=== PATIENT | female | born 1980 | race Two or more races ===

== ENCOUNTER 2016-06-30 21:00 | Outpatient (CLI) | payer OTHER ==
[2016-06-30] MEDS: LACTATED RINGERS 1,000 ML IV ONE ×3 (21:43→23:02)
[2016-06-30] MEDS ORDERED: ONDANSETRON 4 MG/2 ML VIAL IVP STA (22:04)
[2016-06-30] MEDS ORDERED: ACETAMINOPHEN TAB 325 MG TAB PO PRN (22:45)
[2016-06-30 23:12] LABS: Appearance,Urine Clear (Clear); Bilirubin,Urine Negative (Negative); Glucose,Urine (UA) Negative (Negative); Ketones,Urine 1+ (Negative); Leukocyte Esterase,Urine Negative (Negative); Nitrite,Urine Negative (Negative); PH, Urine 6.5 (5.0-8.0); Protein,Urine Negative (Negative); Specific Gravity,Urine 1.005 (1.001-1.035); UA Billing (MACRO vs. MICRO) CHEM; Urobilinogen,Urine <2.0 mg/dL (<2.0)
== END 2016-07-01 00:20 | disposition home or self-care (01) ==
LOC: FBPOP 21:00
PROVIDERS: ATTEND Obstetrics & Gynecology
DX: O99.89 Other specified diseases and conditions complicating pregnancy, childbirth and the puerperium (principal); R51 Headache; Z3A.26 26 weeks gestation of pregnancy
CPT/HCPCS: 99214; 96360; 96361; 96375; 81003; J2405

== ENCOUNTER 2016-07-10 04:37 | Outpatient (CLI) | payer OTHER ==
[2016-07-10 05:04] LABS: Appearance,Urine Clear (Clear); Bilirubin,Urine Negative (Negative); Glucose,Urine (UA) Negative (Negative); Ketones,Urine Negative (Negative); Leukocyte Esterase,Urine Negative (Negative); Nitrite,Urine Negative (Negative); Protein,Urine Negative (Negative); Specific Gravity,Urine 1.006 (1.001-1.035); UA Billing (MACRO vs. MICRO) CHEM; Urobilinogen,Urine <2.0 mg/dL (<2.0)
== END 2016-07-10 05:22 | disposition home or self-care (01) ==
LOC: FBPOP 04:37
PROVIDERS: ATTEND Obstetrics & Gynecology
DX: O99.89 Other specified diseases and conditions complicating pregnancy, childbirth and the puerperium (principal); R10.9 Unspecified abdominal pain; Z3A.27 27 weeks gestation of pregnancy
CPT/HCPCS: 81003; 99213

== ENCOUNTER 2016-08-08 19:10 | Outpatient (CLI) | payer OTHER | END 2016-08-08 19:45 | disposition home or self-care (01) | LOC: FBPOP 19:10 | PROVIDERS: ATTEND Obstetrics & Gynecology | DX: O99.89 Other specified diseases and conditions complicating pregnancy, childbirth and the puerperium (principal); R06.02 Shortness of breath; R05 Cough; Z3A.32 32 weeks gestation of pregnancy | CPT/HCPCS: 59025; 99213 ==

== ENCOUNTER 2016-08-08 19:52 | Observation (INO) | payer OTHER ==
--- NOTE | 2016-08-08 20:31 | ED ---
General Adult HPI - General Chief complaint: Upper Respiratory Infection Stated complaint: SHRUTHI/SENT FROM UPSTAIRS Time Seen by Provider: 08/08/16 19:56 Source: patient, family, RN notes reviewed Mode of arrival: wheelchair Limitations: no limitations - History of Present Illness Initial comments: Chief complaint and history of present illness a 36-year-old female sent down from labor and delivery because of a complaint of cough and shortness of breath. The patient's been feeling sick for the last 3 days. She and her asked a pharmacist which she can take when she started 2 weeks he told them she can take pseudoephedrine. Her last tablet was then 9 this morning. Patient's stating that she has difficulty laying down to sleep at night. Essentially a dry cough occasionally a little yellow and green phlegm. Sometimes she coughs so hard she gags and throws up. - Related Data Home Medications Medication Instructions Recorded Confirmed Pseudoephedrine [Sudafed] 30 mg PO Q4H PRN 08/08/16 08/08/16 Allergies Allergy/AdvReac Type Severity Reaction Status Date / Time iodine Allergy Rash/Hives Verified 08/08/16 20:13 latex Allergy Unknown Verified 08/08/16 20:13 Childhood peanut Allergy Rash/Hives Verified 08/08/16 20:13 Review of Systems ROS Statement: Those systems with pertinent positive or pertinent negative responses have been documented in the HPI. Review of systems. No headache or visual acuity changes. Denies a sore throat. States she feels short of breath even when sitting upright and has to sit upright to sleep. When she lays flat her abdomen does push up against the diaphragms. Recurrent cough. Afebrile at home. She has been using pseudoephedrine to try to control her upper respiratory symptoms. She last took and pseudoephedrine at 9 AM. The patient went to the labor and delivery floor and the baby reportedly checked out okay. the the mother was sent down here for further evaluation. All systems are reviewed. Past medical problems none. Patient states that she is to take Tenex for many years because of a rapid heart rate. She states it was normally in the low 100s. Her boyfriend confirms this. Patient was adopted so she has no family history to report. Surgeries; left inguinal hernia repair. ALLERGIES to iodine and latex and Peanuts. Also the Betadine skin cleanser. Nonsmoker nondrinker ROS Other: All systems not noted in ROS Statement are negative. Past Medical History Past Medical History: No Reported History History of Any Multi-Drug Resistant Organisms: None Reported Past Surgical History: No Surgical Hx Reported Past Psychological History: No Psychological Hx Reported Smoking Status: Never smoker Past Alcohol Use History: None Reported Past Drug Use History: None Reported General Exam - General Exam Comments Initial Comments: General: The patient is awake and alert, appears uncomfortable because of her difficulty breathing. Frequent coughing. No pain. Vital signs show temperature 98.6 pulse 138 history rate 20 pulse ox 97% room air blood pressure 152/77. Eye: Pupils are equal, round and reactive to light, extra-ocular movements are intact ; there is normal conjunctiva bilaterally. No signs of icterus. Ears, nose, mouth and throat: There are moist mucous membranes and no oral lesions. Neck: The neck is supple, there is no tenderness . Cardiovascular: Tachycardic heart rate, 138. No murmur, rub or gallop is appreciated. Blood pressure 152/77 Respiratory: Lungs are clear to auscultation, respirations are non-labored, breath sounds are equal. No wheezes, stridor, rales, or rhonchi. Frequent coughing the lungs are clear. Her story rate 20 pulse ox 97% room air Gastrointestinal: Patient is 32 weeks . Back: There is no tenderness to palpation in the midline. There is no obvious deformity. Musculoskeletal: Normal ROM, no tenderness, There is no pedal edema. There is no calf tenderness or swelling. Sensation intact. Pulses equal bilaterally 2+. Neurological: CN II-XII intact, There are no obvious motor or sensory deficits. Coordination appears grossly intact. Speech is normal. No evidence of a neuro deficits. Skin: Skin is warm and dry and no rashes or lesions are noted. Limitations: no limitations Course Vital Signs 08/08/16 08/08/16 08/09/16 19:56 22:22 00:31 Temperature 98.6 F Pulse Rate 138 H 129 H 137 H Respiratory 20 16 18 Rate Blood Pressure 152/77 115/67 112/60 O2 Sat by Pulse 97 99 98 Oximetry EKG Findings - EKG Comments: EKG Findings:: EKG was done at 2335 showing sinus tachycardia rate 149. No acute ST elevation no ectopy no ischemic changes. MS was 126 QRS 72 QT to [address] Ryan Medical Decision Making - Medical Decision Making Medical decision making repeat vital signs blood pressure 115/67 pulse still elevated at 129. Pulse ox 100 percent room air. The patient's labs show white count 7.8 hemoglobin 12 medical 37 with a d-dimer elevated 1.34. Potassium 4.5 BUN 17 creatinine 0.6 with a GFR greater than 60. Influenza A/B neg per lab report. TSH is 2.0 The patient is not able to have a PE study with CAT scan because of an ALLERGY to iodine. She states she swells when she gets iodine and even when she has Betadine prepped on the skin she has local reaction. A VQ scan was ordered but there isn't any material available this evening, product will be available tomorrow morning so VQ scan can be done at that time. Vital signs, labs and physical exam all discussed with on-call [facility] doctor Peyton. At this time the patient will be admitted to her service, kept on O2, IV hydration and VQ scan in the morning. Patient had EKG done which showed a ventricular rate 149. Patient is admittedly anxious and her heart rate goes from 07/16/1932. Within 5 minutes of having had EKG her heart rate was 125. Patient states she is usually very anxious. Her heart rate was going up and down she talked about her anxiety level. She states she normally takes Tylenol PMs which is a combination of acetaminophen and diphenhydramine in order to make her little sleepy. She is requesting and at this time. She also states she took one half Klonopin several nights ago and a Prilosec for upset stomach. When she was younger she used to take medication as slow her heart rate. She had ADHD and she was on medications for that. When the patient rested watch television heart rate dropped to 125 to 130. - Lab Data Result diagrams: 08/08/16 20:53 08/08/16 20:53 Lab Results 08/08/16 08/08/16 08/08/16 Range/Units 20:53 20:53 20:53 WBC 7.8 (3.8-10.6) k/uL RBC 4.69 (3.80-5.40) m/uL Hgb 12.3 (11.4-16.0) gm/dL Hct 37.8 (34.0-46.0) % MCV 80.6 (80.0-100.0) fL MCH 26.2 (25.0-35.0) pg MCHC 32.4 (31.0-37.0) g/dL RDW 14.5 (11.5-15.5) % Plt Count 246 (150-450) k/uL Neutrophils % 78 % Lymphocytes % 12 % Monocytes % 7 % Eosinophils % 1 % Basophils % 0 % Neutrophils # 6.0 (1.3-7.7) k/uL Lymphocytes # 0.9 L (1.0-4.8) k/uL Monocytes # 0.5 (0-1.0) k/uL Eosinophils # 0.1 (0-0.7) k/uL Basophils # 0.0 (0-0.2) k/uL Hypochromasia Moderate Poikilocytosis Moderate D-Dimer (<0.60) mg/L FEU Sodium 137 (137-145) mmol/L Potassium 4.5 (3.5-5.1) mmol/L Chloride 106 (98-107) mmol/L Carbon Dioxide 20 L (22-30) mmol/L Anion Gap 11 mmol/L BUN 7 (7-17) mg/dL Creatinine 0.60 (0.52-1.04) mg/dL Est GFR (MDRD) Af Amer >60 (>60 ml/min/1.73 sqM) Est GFR (MDRD) Non-Af >60 (>60 ml/min/1.73 sqM) Glucose 77 (74-99) mg/dL Calcium 9.2 (8.4-10.2) mg/dL Total Bilirubin 0.5 (0.2-1.3) mg/dL AST 24 (14-36) U/L ALT 30 (9-52) U/L Alkaline Phosphatase 156 H (38-126) U/L Total Protein 6.6 (6.3-8.2) g/dL Albumin 3.3 L (3.5-5.0) g/dL TSH (0.465-4.680) mIU/L Influenza Type A RNA Not Detected (Not Detectd) Influenza Type B (PCR) Not Detected (Not Detectd) 08/08/16 08/08/16 Range/Units 20:53 20:53 WBC (3.8-10.6) k/uL RBC (3.80-5.40) m/uL Hgb (11.4-16.0) gm/dL Hct (34.0-46.0) % MCV (80.0-100.0) fL MCH (25.0-35.0) pg MCHC (31.0-37.0) g/dL RDW (11.5-15.5) % Plt Count (150-450) k/uL Neutrophils % % Lymphocytes % % Monocytes % % Eosinophils % % Basophils % % Neutrophils # (1.3-7.7) k/uL Lymphocytes # (1.0-4.8) k/uL Monocytes # (0-1.0) k/uL Eosinophils # (0-0.7) k/uL Basophils # (0-0.2) k/uL Hypochromasia Poikilocytosis D-Dimer 1.34 H (<0.60) mg/L FEU Sodium (137-145) mmol/L Potassium (3.5-5.1) mmol/L Chloride (98-107) mmol/L Carbon Dioxide (22-30) mmol/L Anion Gap mmol/L BUN (7-17) mg/dL Creatinine (0.52-1.04) mg/dL Est GFR (MDRD) Af Amer (>60 ml/min/1.73 sqM) Est GFR (MDRD) Non-Af (>60 ml/min/1.73 sqM) Glucose (74-99) mg/dL Calcium (8.4-10.2) mg/dL Total Bilirubin (0.2-1.3) mg/dL AST (14-36) U/L ALT (9-52) U/L Alkaline Phosphatase (38-126) U/L Total Protein (6.3-8.2) g/dL Albumin (3.5-5.0) g/dL TSH 2.010 (0.465-4.680) mIU/L Influenza Type A RNA (Not Detectd) Influenza Type B (PCR) (Not Detectd) Disposition Clinical Impression: Dyspnea, Third trimester Disposition: ADMITTED IP TO [facility] Condition: Fair
[2016-08-08] MEDS: SODIUM CHLORIDE 0.9% 1,000 ML IV SCH (20:58)
--- NOTE | 2016-08-08 21:00 | XR ---
EXAMINATION TYPE: XR chest 2V DATE OF EXAM: 08/08/2016 8:48 PM COMPARISON: NONE HISTORY: Cough and short of breath TECHNIQUE: Frontal and lateral views of the chest are obtained. FINDINGS: Heart and mediastinum are normal. Lungs are clear. Diaphragm is normal. Bony thorax is int act. IMPRESSION: Normal chest
[2016-08-08 21:28] LABS: Basophils % (A) 0 %; CH 26.2; CHCM 32.6; Eosinophils # (A) 0.1 k/uL (0-0.7); Eosinophils % (A) 1 %; HCT 37.8 % (34.0-46.0); HDW 4.05; HGB 12.3 gm/dL (11.4-16.0); Hypochromasia Moderate; Luc # (Auto) 0.21; Luc % (Auto) 3; Lymphocytes # (A) 0.9 k/uL (1.0-4.8); Lymphocytes % (A) 12 %; MCH 26.2 pg (25.0-35.0); MCHC 32.4 g/dL (31.0-37.0); MCV 80.6 fL (80.0-100.0); Mean Platelet Volume 8.1; Monocytes # (A) 0.5 k/uL (0-1.0); Monocytes % (A) 7 %; Neutrophils % (A) 78 %; Poikilocytosis Moderate; RBC 4.69 m/uL (3.80-5.40); RDW 14.5 % (11.5-15.5); WBC 7.8 k/uL (3.8-10.6); WBC (Perox) 8.07
[2016-08-08 22:12] LABS: ALT 30 U/L (9-52); AST 24 U/L (14-36); Alkaline Phosphatase 156 U/L (38-126); Anion Gap 11 mmol/L; Blood Urea Nitrogen 7 mg/dL (7-17); Calcium 9.2 mg/dL (8.4-10.2); Carbon Dioxide 20 mmol/L (22-30); Chloride 106 mmol/L (98-107); Glucose 77 mg/dL (74-99); Non-African American GFR(MDRD) >60 (>60 ml/min/1.73 sqM); Potassium 4.5 mmol/L (3.5-5.1); Sodium 137 mmol/L (137-145); Total Bilirubin 0.5 mg/dL (0.2-1.3); Total Protein 6.6 g/dL (6.3-8.2)
[2016-08-09] MEDS ORDERED: diphenhydrAMINE 25 MG CAP PO STA (00:22)
[2016-08-09] MEDS ORDERED: ACETAMINOPHEN TAB 500 MG TAB PO STA (00:22)
[2016-08-09] MEDS ORDERED: NALOXONE 0.4 MG/ML 1 ML VIAL IV PRN (01:09)
--- NOTE | 2016-08-09 08:00 | NM ---
EXAMINATION TYPE: NM pul perfusion DATE OF EXAM: 08/09/2016 7:51 AM COMPARISON: Chest x-ray from yesterday. HISTORY: Known third trimester with tachycardia, shortness of breath, and positive d-dimer. Following administration of 4.09 mCi Tc 99m MAA. Images obtained post injection in multiple projecti ons of the bilateral lungs. FINDINGS: Only perfusion imaging is performed. No suspicious filling defects are noted on perfusion imaging. Be cause of this ventilation imaging was not performed. IMPRESSION: Low probability for pulmonary embolism.
[2016-08-09] MEDS: SODIUM CHLORIDE 0.9% 1,000 ML IV SCH ×5 (08:29→17:44)
[2016-08-09] MEDS: ACETAMINOPHEN TAB 325 MG TAB PO PRN ×2 (08:34→23:04)
--- NOTE | 2016-08-09 17:43 | ECHOF ---
Referral Reason:lv function MEASUREMENTS -------- HEIGHT: 152.4 cm WEIGHT: 63.5 kg BP: IVSd: 0.9 cm (0.6 - 1.1) LVIDd: 4.3 cm (3.9 - 5.3) LVPWd: 0.9 cm (0.6 - 1.1) LVIDs: 3.4 cm LA Diam: 3.4 cm (2.7 - 3.8) RVIDd: 2.3 cm (< 3.3) Ao Diam: 2.9 cm (2.0 - 3.7) LA Diam: 3.2 cm (2.7 - 3.8) AV Cusp: 1.4 cm (1.5 - 2.6) EPSS: 0.5 cm MV E Adam: 1.75 m/s MV DecT: 158 ms MV A Adam: 1.06 m/s MV E/A Ratio: 1.65 RAP: 5.00 mmHg RVSP: 28.51 mmHg MV EF SLOPE: 169.26 mm/s (70 - 150) MV EXCURSION: 12.23 mm (> 18.000) FINDINGS -------- Undetermined rhythm. This was a technically excellent study. LV size, wall thickness and systolic function are normal, with an EF greater than 55%. The right ventricle is normal in size. The left atrial size is normal. The right atrial size is normal. There is mild aortic valve sclerosis. There is no evidence of aortic regurgitation. Mild mitral regurgitation is present. Mild tricuspid regurgitation present. There is no evidence of pulmonary hypertension. The right ventricular systolic pressure, as measured by Doppler, is 28.51mmHg. There is no pulmonic regurgitation present. The aortic root size is normal. There is no pericardial effusion. CONCLUSIONS -------- 1. LV size, wall thickness and systolic function are normal, with an EF greater than 55%. 2. There is mild aortic valve sclerosis. 3. Mild mitral regurgitation is present. 4. Mild tricuspid regurgitation present. 5. There is no evidence of pulmonary hypertension. 6. The right ventricular systolic pressure, as measured by Doppler, is 28.51mmHg. 7. There is no pulmonic regurgitation present. [employer] PROFESSOR: Sana Millan RDCS
--- NOTE | 2016-08-09 17:51 | CONS ---
DATE OF CONSULTATION: 08/09/2016 CHIEF COMPLAINT: Sinus tachycardia. HISTORY OF PRESENT ILLNESS: The patient is a 36-year-old lady who is 32 weeks , comes in to hospital complaining of shortness of breath and not feeling well. She states that she came down with a runny nose about 3 to 4 days ago and then subsequently felt short of breath and fatigued. Came to the ER, had a d-dimer that was 1.34, went on to have a V/Q scan that is low probability for pulmonary embolism. EKG shows sinus tachycardia with heart rate around 148 beats per minute, movements. The patient still is in sinus tach. Denies any chest pain, paroxysmal nocturnal dyspnea or orthopnea. There is no history of leg edema. The patient had a chest x-ray that was normal. I have been consulted because of the sinus tachycardia. There is no prior cardiac history. She was originally from [facility] and was adopted at age of 9 and has been brought up here in the [place]. An echocardiogram on her showed normal LV function and there is no evidence of valvular heart disease. The patient is not anemic. She has taken Sudafed and then the last dose was yesterday morning. Her TSH is within normal limits. The exact etiology for her sinus tachycardia is unclear, but I do not see any primary cardiac issues causing her sinus tachycardia. She is not anemic. Does not have hyperthyroidism and her LV function is normal and she does not have valvular heart disease. Please look for secondary causes including the recent viral illness and any infection. Her white cell count is normal. The patient does not need any therapy for her sinus tachycardia. She is being hydrated and she is being hydrated at the moment. The BUN and creatinine has been normal limits. Blood sugar is normal at 77. This is her first . Past medical history is negative for hypertension, diabetes or dyslipidemia. Medications include Sudafed. ALLERGIC TO IV DYE, LASIX AND PEANUTS. FAMILY HISTORY: Adopted. SOCIAL HISTORY: Denies smoking or ETOH abuse. REVIEW OF SYSTEMS: HEENT: Unremarkable. CARDIAC: As described above. RESPIRATORY: As described above. GI: Negative. GENITOURINARY: The patient is . PSYCHOSOCIAL: Negative. ENDOCRINE: Negative. Derm: Negative. CONSTITUTIONAL: Significant for fatigue, tiredness. Oncological: Negative. HEMATOLOGICAL: Negative. The rest of the system review is not relevant. The patient's temp is 99.9 and heart rate is 128 beats a minute, blood pressure 130/72, respiratory rate is 18. There is no jugular venous distention. Chest exam reveals good air entry bilaterally. Heart exam reveals first and second heart sounds. No gallop. No murmur. ABDOMEN: Soft. The patient is . Exam of the extremities did not reveal any edema. Peripheral pulses are felt. ASSESSMENT: Inappropriate sinus tachycardia. PLAN: Patient's tachycardia could be related to the Sudafed that she has taken for her flulike symptoms. She is negative for influenza. LV function is normal. She is not in congestive heart failure. She is not anemic. Does not have hypothyroidism. I am not going to start her any medications at this time and she does not require any further cardiac work-up at this time. I reviewed echo results with her. We will watch her on telemetry overnight and I will reassess in the morning.
[2016-08-09] MEDS ORDERED: diphenhydrAMINE 25 MG CAP PO PRN (20:49)
--- NOTE | 2016-08-09 22:16 | P.OBCN ---
History of Present Illness Consult date: 08/09/16 Reason for consult: other (32 weeks intrauterine , dyspnea and tachycardia) Chief complaint: Dyspnea and tachycardia History of present illness: The patient is a 36-year-old 1 para 0 admitted at approximately 32 weeks of with a several-day complaint of increasing head congestion and runny nose. She did try some [id number] Sudafed after consulting with our office and ultimately presented to labor and delivery for evaluation as she felt that she may have pneumonia secondary to difficulty breathing. Her significant other had also recently been sick but has improved. On labor and delivery, she had obstetrical clearance with reactive nonstress test and was transferred to the emergency room for further evaluation of her tachycardia and dyspnea. Thorough evaluation the emergency room included chest x-ray which was negative, laboratory workup which was essentially negative as well. She continued, however, to have significant resting tachycardia though she was asymptomatic. As result a VQ scan was ordered and ultimately carried out early this morning with the it demonstrating low likelihood for pulmonary embolism. She was admitted to a monitored bed and cardiology consultation was sought. She was seen today by Dr. Jenkins who performed an echocardiogram which was entirely negative and normal with normal cardiac function and no evidence of cardiomyopathy. On questioning this evening, she reports that she generally feels better but still has congestion. She coughs when she is completely flat, likely from postnasal drip. She reports normal activity and denies any contractions. She continues to have low back pain and rectal discomfort as previously documented in the office. Obstetrical history 1 para 0 with no particular obstetrical complications to this point aside from as noted in history present illness. Laboratory workup as documented in her record which is not available in the chart at the moment. Gynecologic history is unremarkable with no history of any infections to include STDs. Review of Systems Review of systems is confined to history of present illness. Past Medical History Past Medical History: No Reported History Additional Past Medical History / Comment(s): Pt is 32 weeks gestation. She states she was going for a test for possible gestational diabetes today, past ectopic . 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 She lives with her significant other. She is independent. Smoking Status: Never smoker Past Alcohol Use History: None Reported Additional Past Alcohol Use History / Comment(s): Pt states she is exposed to 2nd hand smoke. Past Drug Use History: None Reported - Past Family History Father History Unknown: Yes Additional Family Medical History / Comment(s): Pt was adopted out of [facility]. She knows her father from a rickshaw accident. Mother History Unknown: Yes Additional Family Medical History / Comment(s): Pt was adopted. Medications and Allergies Home Medications Medication Instructions Recorded Confirmed Type Pseudoephedrine [Sudafed] 30 mg PO Q4H PRN 08/08/16 08/08/16 History Allergies Allergy/AdvReac Type Severity Reaction Status Date / Time iodine Allergy Rash/Hives Verified 08/08/16 20:13 latex Allergy Unknown Verified 08/08/16 20:13 Childhood peanut Allergy Rash/Hives Verified 08/08/16 20:13 Exam - Vital Signs Vital signs: Vital Signs Temp Pulse Pulse Resp BP BP Pulse Ox 08/09/16 20:00 97.7 F 125 H 18 112/73 98 08/09/16 16:00 125 H 16 124/70 98 08/09/16 15:16 99.9 F H 128 H 20 130/72 99 08/09/16 12:00 128 H 08/09/16 08:30 99.9 F H 139 H 20 130/72 99 08/09/16 06:46 133 H 16 127/86 98 08/09/16 03:12 98.9 F 126 H 18 121/60 96 Intake and Output 08/09/16 08/09/16 08/09/16 06:59 14:59 22:59 Intake Total 622 Balance 622 Intake: IV 400 Sodium Chloride 0.9% 1, 400 000 ml @ 50 mls/hr IV . [facility] Rx#:[id number] Oral 222 Other: Voiding Method Toilet In general, this is a well-developed, well-nourished woman in no acute distress. She does sound congested. Her heart has a regular rhythm though she remains tachycardic. Her lungs are clear to auscultation bilaterally in all giles. Her abdomen is gravid, nondistended, has normal active bowel sounds, is soft, nontender, and without any palpable masses aside from uterine fundus. Her extremities are without any cyanosis, clubbing, or significant edema. Pelvic examination is deferred as it is not indicated Results Result Diagrams: 08/08/16 20:53 08/08/16 20:53 Assessment and Plan (1) Dyspnea Status: Acute (2) Tachycardia Status: Acute (3) Third trimester Status: Acute Plan: Workup for her symptoms has been thorough and exhaustive and entirely negative at this point. She does not appear to have any ongoing concerns though she is undergoing nonstress test each shift. These have remained reactive. The patient appears to be improving clinically from her earlier description. Given the findings of cardiology or lack thereof, I suspect she will likely be discharged home in the morning. I have recommended she not take any further Sudafed though she might consider Claritin or perhaps Benadryl. I did warn her that many decongestants can cause extrapyramidal side effects such as tachycardia. We will continue to monitor the baby each shift but otherwise I will follow at a distance.
[2016-08-10] MEDS: ACETAMINOPHEN TAB 325 MG TAB PO PRN (09:01)
--- NOTE | 2016-08-10 10:57 | PN ---
A 36-year-old lady who is 32 weeks is admitted to hospital with symptoms of nasal congestion and was found to be tachycardic for which she was admitted to telemetry unit and Cardiology had been consulted. From cardiac standpoint, her work-up is negative. TSH is normal. Echo shows normal LV function and she is not significantly anemic. This morning, she appears comfortable at rest. Blood pressure was in the 130s to 140s systolic, afebrile, and the heart rate remains elevated, mostly in the 120s to 130s. Chest exam reveals good air entry bilaterally. Heart exam reveals first and second heart sounds. No gallop. Exam of the extremities did not reveal any edema. I do not have any labs from this morning. ASSESSMENT: Inappropriate sinus tachycardia. No further cardiac work-up is needed at this time. She can be discharged home whenever it is safe from her obstetric standpoint. Thank you for allowing us to participate in the care of this pleasant lady.
--- NOTE | 2016-08-10 13:10 | P.DS ---
Providers Date of admission: 08/09/16 01:09 Expected date of discharge: 08/10/16 Attending physician: Dorothy Stearns Consults: 08/09/16 16:01 Consult Physician Stat Consulting Provider: Piotr Jenkins Consult Reason/Comments: tachicardia Do you want consulting provider notified?: Already Contacted Primary care physician: Ken Mathew - Discharge Diagnosis(es) (1) Dyspnea Current Visit: Yes Status: Acute (2) Tachycardia Current Visit: Yes Status: Acute (3) Third trimester Current Visit: Yes Status: Acute Hospital Course: The patient is a 36 year 1 para 0 admitted at approximately 32 weeks of with a several day history of increasing congestion and cough as well as runny nose. She tried [id number] medications to include Sudafed and ultimately presented for complaints that she thought were consistent with pneumonia. She was cleared obstetrically and sent to the emergency room where she was evaluated and found to have significant tachycardia in the range of 120 to 160s. Given the shortness of breath, she underwent chest x-ray as well as ultimately, a VQ scan, both of which were negative. She was admitted to the hospital for further evaluation and cardiac monitoring. She underwent cardiology consultation which time an echocardiogram was performed and found to be normal. White count was normal throughout the entire stay and most of her cough could be attributed to the laying flat with postnasal drip. She did feel somewhat better on the day of discharge. status was reassuring throughout. There was no evidence of any contractions. The entire workup as regards the tachycardia was negative and was thought from cardiology's standpoint to be related either to Sudafed or simply her viral upper respiratory infection. She was cleared from Cardiologic standpoint to be discharged on hospital day #2 and was discharged home to follow-up in my office in approximately 5-7 days. She is instructed to call for any significantly increasing symptoms or any other concerns. She'll continue to monitor movement as previously instructed. I have instructed her to abstain from further use of Sudafed and suggested perhaps she could try Claritin. She understood her instructions and agrees to follow up as noted above. Discharge medications included only vitamins and kjon-hcr-wnboehz decongestants and analgesics as noted above. Procedures: #1. Chest x-ray #2. VQ scan #3. Echocardiogram #4. Cardiology consultation # 5. Remote cardiac monitoring Patient Condition at Discharge: Fair Plan - Discharge Summary Discharge Medication List Pseudoephedrine [Sudafed] 30 mg PO Q4H PRN 08/08/16 [History] Follow up Appointment(s)/Referral(s): Ken Mathew MD [Primary Care Provider] - 1-2 days Danny Blevins MD [STAFF PHYSICIAN] - 1 Week Discharge Disposition: HOME SELF-CARE
[2016-08-10 14:43] VITALS: BP 121/74; PULSE 123; RESP 16; TEMP 96.6
== END 2016-08-10 14:50 | disposition home or self-care (01) ==
LOC: EC 19:52 → 6SEL 08-09 01:09
PROVIDERS: ADMIT Obstetrics & Gynecology; ATTEND Obstetrics & Gynecology
DX: O99.413 Diseases of the circulatory system complicating pregnancy, third trimester (principal); O26.893 Other specified pregnancy related conditions, third trimester; O99.513 Diseases of the respiratory system complicating pregnancy, third trimester; R00.0 Tachycardia, unspecified; R06.00 Dyspnea, unspecified; Z3A.32 32 weeks gestation of pregnancy; J06.9 Acute upper respiratory infection, unspecified; Z91.041 Radiographic dye allergy status; Z88.8 Allergy status to other drugs, medicaments and biological substances
CPT/HCPCS: 36415; 94760; 93005; 93306; 85379; 84439; 80053; 84443; 85025; 87502; 71020; 78580; 99285; 96360; 96361; G0378 ×2; A9540

== ENCOUNTER 2016-08-16 20:35 | Observation (INO) | payer OTHER ==
--- NOTE | 2016-08-16 21:34 | ED ---
General Adult HPI - General Chief complaint: Recheck/Abnormal Lab/Rx Stated complaint: Low Blood Count Time Seen by Provider: 08/16/16 20:50 Source: patient, RN notes reviewed Mode of arrival: wheelchair Limitations: no limitations - History of Present Illness Initial comments: This is a 36-year-old female who is 33 weeks . Patient comes in today stating that her doctor wanted to be evaluated the hospital because her hemoglobin was down to 9.1. Patient states she was admitted to the hospital approximately one week ago for tachycardia they checked her hemoglobin at that time was 12. Patient states since then. The 9.1 and she is more fatigued she feels as though her heart is racing more. Patient states lying backward flat makes her breathing more difficult. Patient denies any chest pain. Patient denies any fever or chills. Patient denies any abdominal pain patient denies any vaginal bleeding or discharge. Patient denies any rectal bleeding or black stools that she knows of. Patient denies dysuria hematuria urinary frequency. Patient denies any lightheadedness dizziness or mcfp episode. - Related Data Home Medications Medication Instructions Recorded Confirmed Acetaminophen Tab [Tylenol Tab] 325 - 650 mg PO Q6H PRN 08/16/16 08/16/16 Acetaminophen/Diphenhydramine 1 - 2 tab PO HS PRN 08/16/16 08/16/16 [Tylenol PM 500-25mg] Loratadine [Claritin] 10 mg PO DAILY 08/16/16 08/16/16 Omeprazole 40 mg PO DAILY 08/16/16 08/16/16 Allergies Allergy/AdvReac Type Severity Reaction Status Date / Time iodine Allergy Rash/Hives Verified 08/16/16 21:05 latex Allergy Unknown Verified 08/16/16 21:05 Childhood peanut Allergy Rash/Hives Verified 08/16/16 21:05 Review of Systems ROS Statement: Those systems with pertinent positive or pertinent negative responses have been documented in the HPI. ROS Other: All systems not noted in ROS Statement are negative. Past Medical History Past Medical History: No Reported History Additional Past Medical History / Comment(s): Pt is 32 weeks gestation. She states she was going for a test for possible gestational diabetes today, past ectopic . 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 She lives with her significant other. She is independent. Smoking Status: Never smoker Past Alcohol Use History: None Reported Additional Past Alcohol Use History / Comment(s): Pt states she is exposed to 2nd hand smoke. Past Drug Use History: None Reported - Past Family History Father History Unknown: Yes Additional Family Medical History / Comment(s): Pt was adopted out of [facility]. She knows her father from a rickshaw accident. Mother History Unknown: Yes Additional Family Medical History / Comment(s): Pt was adopted. General Exam - General Exam Comments Initial Comments: GENERAL: Patient is well-developed and well-nourished. Patient is nontoxic and well- hydrated and is in no acute distress. ENT: Neck is soft and supple. No significant lymphadenopathy is noted. Oropharynx is clear. Moist mucous membranes. Neck has full range of motion without eliciting any pain. EYES: The sclera were anicteric and conjunctiva were pink and moist. Extraocular movements were intact and pupils were equal round and reactive to light. Eyelids were unremarkable. PULMONARY: Unlabored respirations. Good breath sounds bilaterally. No audible rales rhonchi or wheezing was noted. CARDIOVASCULAR: Patient is tachycardic at approximately 130 beats a minute ABDOMEN: Patient is a abdomen consistent with 33 weeks SKIN: Skin is clear with no lesions or rashes and otherwise unremarkable. NEUROLOGIC: Patient is alert and oriented x3. Cranial nerves II through XII are grossly intact. Motor and sensory are also intact. Normal speech, volume and content. Symmetrical smile. MUSCULOSKELETAL: Normal extremities with adequate strength and full range of motion. No lower extremity swelling or edema. No calf tenderness. LYMPHATICS: No significant lymphadenopathy is noted PSYCHIATRIC: Normal psychiatric evaluation. Limitations: no limitations Course Vital Signs 08/16/16 08/16/16 20:47 22:16 Temperature 98 F 97.4 F L Pulse Rate 122 H 93 Respiratory 18 20 Rate Blood Pressure 133/80 113/70 O2 Sat by Pulse 99 99 Oximetry Medical Decision Making - Medical Decision Making EKG shows sinus tachycardia at 120 bpm SC interval is 114 QRS is 86 QT interval 318 QTC is 451 per patient's EKG shows no ST segment elevation or depression or T-wave abdomen is noted up Patient refused a rectal examination. I spoke with Dr. guy to be suboptimal patient we agreed to admit the patient I wrote admitting orders. - Lab Data Result diagrams: 08/16/16 21:45 08/16/16 21:45 Lab Results 08/16/16 08/16/16 08/16/16 Range/Units 21:45 21:45 21:45 WBC 10.1 (3.8-10.6) k/uL RBC 3.75 L (3.80-5.40) m/uL Hgb 9.7 L D (11.4-16.0) gm/dL Hct 29.8 L (34.0-46.0) % MCV 79.6 L (80.0-100.0) fL MCH 26.0 (25.0-35.0) pg MCHC 32.7 (31.0-37.0) g/dL RDW 14.8 (11.5-15.5) % Plt Count 299 (150-450) k/uL Neutrophils % 78 % Lymphocytes % 14 % Monocytes % 5 % Eosinophils % 1 % Basophils % 0 % Neutrophils # 7.8 H (1.3-7.7) k/uL Lymphocytes # 1.4 (1.0-4.8) k/uL Monocytes # 0.5 (0-1.0) k/uL Eosinophils # 0.1 (0-0.7) k/uL Basophils # 0.0 (0-0.2) k/uL Hypochromasia Moderate Poikilocytosis Moderate PT 11.2 (9.0-12.0) sec INR 1.1 (<1.1) APTT 23.9 (22.0-30.0) sec Sodium 135 L (137-145) mmol/L Potassium 4.0 (3.5-5.1) mmol/L Chloride 106 (98-107) mmol/L Carbon Dioxide 18 L (22-30) mmol/L Anion Gap 11 mmol/L BUN 8 (7-17) mg/dL Creatinine 0.57 (0.52-1.04) mg/dL Est GFR (MDRD) Af Amer >60 (>60 ml/min/1.73 sqM) Est GFR (MDRD) Non-Af >60 (>60 ml/min/1.73 sqM) Glucose 121 H (74-99) mg/dL Calcium 8.4 (8.4-10.2) mg/dL Total Bilirubin 0.5 (0.2-1.3) mg/dL AST 22 (14-36) U/L ALT 16 (9-52) U/L Alkaline Phosphatase 155 H (38-126) U/L Total Protein 6.5 (6.3-8.2) g/dL Albumin 3.1 L (3.5-5.0) g/dL Disposition Clinical Impression: Dyspnea, Anemia, Tachycardia, Disposition: ADMITTED IP TO THIS [facility] Time of Disposition: 22:43
[2016-08-16 22:07] LABS: INR 1.1 (<1.1); Partial Thromboplastin Time 23.9 sec (22.0-30.0); Prothrombin Time 11.2 sec (9.0-12.0)
[2016-08-16 22:08] LABS: ALT 16 U/L (9-52); AST 22 U/L (14-36); Alkaline Phosphatase 155 U/L (38-126); Anion Gap 11 mmol/L; Blood Urea Nitrogen 8 mg/dL (7-17); Calcium 8.4 mg/dL (8.4-10.2); Carbon Dioxide 18 mmol/L (22-30); Chloride 106 mmol/L (98-107); Glucose 121 mg/dL (74-99); Non-African American GFR(MDRD) >60 (>60 ml/min/1.73 sqM); Sodium 135 mmol/L (137-145); Total Bilirubin 0.5 mg/dL (0.2-1.3); Total Protein 6.5 g/dL (6.3-8.2)
[2016-08-16 22:19] LABS: Basophils % (A) 0 %; CH 25.7; CHCM 32.4; Eosinophils # (A) 0.1 k/uL (0-0.7); Eosinophils % (A) 1 %; HCT 29.8 % (34.0-46.0); HDW 4.25; Hypochromasia Moderate; Luc # (Auto) 0.26; Luc % (Auto) 3; Lymphocytes # (A) 1.4 k/uL (1.0-4.8); Lymphocytes % (A) 14 %; MCHC 32.7 g/dL (31.0-37.0); MCV 79.6 fL (80.0-100.0); Mean Platelet Volume 8.1; Monocytes # (A) 0.5 k/uL (0-1.0); Monocytes % (A) 5 %; Neutrophils # (A) 7.8 k/uL (1.3-7.7); Neutrophils % (A) 78 %; Poikilocytosis Moderate; RBC 3.75 m/uL (3.80-5.40); RDW 14.8 % (11.5-15.5); WBC 10.1 k/uL (3.8-10.6); WBC (Perox) 10.42
[2016-08-16 22:21] LABS: HGB 9.7 gm/dL (11.4-16.0)
[2016-08-16] MEDS ORDERED: SODIUM CHLORIDE 0.9% 1,000 ML IV ONE (22:43)
--- NOTE | 2016-08-16 23:29 | US ---
EXAMINATION TYPE: US OB >= 14 wk fetus DATE OF EXAM: 08/16/2016 11:18 PM COMPARISON: None CLINICAL HISTORY: Pain Low hemoglobin TECHNIQUE: Transabdominal (TA) GESTATIONAL AGE / DATING Physician Established: (33 weeks/1 days) EDC: 10/03/2016 Dates by LMP: (33 weeks/1 days) EDC: 10/03/2016 Dates by First Scan: No previous at this facility Dates by Current Scan: (34 weeks/6 days) EDC: 09/21/2016 SURVEY IUP: Single PLACENTA: Anterior PREVIA: No Previa ARGELIA: 12.1 cm Normal CERVICAL LENGTH (transabdominal: norm > 3.0cm): 3.3 cm BIOMETRY PRESENTATION: Vertex LIE: Longitudinal BPD: 8.7 cm 35 weeks / 4 days HC: 31.4 cm 35 weeks / 2 days AC: 32.5 cm 36 weeks / 3 days FL: 6.7 cm 34 weeks / 3 days ESTIMATED WEIGHT IN GRAMS: 2747 grams ESTIMATED WEIGHT IN LBS/OZS: 6 lbs. 1 oz. WEIGHT PERCENTAGE BASED ON ESTABLISHED DATES: >97% HC/AC: 0.97 Normal FL/AC: 20.62 Normal HEART RATE: 140 bpm RHYTHM: Normal TECHNOLOGIST IMPRESSION: Viable IUP measuring in the >97% with an CHADWICK of 09/21/2016 on this exam IMPRESSION: The ultrasound gestational age is 34 weeks 6 days. The CHADWICK is 09/21/2016. I see no complicating proces s. I have no old exam to compare. Estimated weight is 2747 g.
[2016-08-16 23:39] VITALS: TEMP 97.7
[2016-08-17 01:28] VITALS: BMI 26.0
[2016-08-17] MEDS ORDERED: ACETAMINOPHEN TAB 325 MG TAB PO PRN (02:08)
[2016-08-17] MEDS ORDERED: diphenhydrAMINE 25 MG CAP PO STA (02:09)
[2016-08-17 08:08] VITALS: BP 100/58; PULSE 113; RESP 14
--- NOTE | 2016-08-17 08:31 | P.HPOB ---
History of Present Illness H&P Date: 08/17/16 Chief Complaint: Shortness of breath at 33 weeks gestation This is a 36-year-old 1 para 0 woman who is approximately 33 weeks who presents to the emergency room with shortness of breath and feeling like her heart is racing. She is well known to this service as she had similar symptoms 1 week ago. She had an extensive evaluation at that time including rule out pulmonary embolism and cardiology consultation. She had a normal echocardiogram and evaluation at that time. She reports since she was discharged home she continues to feel intermittently short of breath especially when she is lying down. She denies chest pain. She was evaluated in the emergency room and was found to have a hemoglobin of 9.7. Because this was decreased from her hemoglobin on recent admission of 12.1 and she was found to be tachycardic, she was admitted for observation. The patient denies any vaginal or rectal bleeding. She denies any abdominal pain or leakage of fluids. She feels good movement. She denies chest pain or shortness of breath upon my initial evaluation and she is requesting to be discharged home as she feels better. ultrasound does not show any evidence of abruption or retroplacental bleeding. There is a normal ARGELIA. The infant isn't greater than the 97th percentile for growth. Nonstress testing has been reassuring for gestational age on the fetus. Review of Systems Constitutional: Reports fatigue, Denies chills, Denies fever Cardiovascular: Reports rapid heart beat, Reports shortness of breath, Denies chest pain, Denies edema, Denies high blood pressure, Denies irregular heart beat, Denies leg edema, Denies lightheadedness, Denies palpitations Respiratory: Reports as per HPI Gastrointestinal: Denies abdominal pain, Denies BRBPR, Denies nausea, Denies vomiting Genitourinary: Denies abnormal vaginal bleeding Neurological: Denies headaches Hematologic/Lymphatic: Denies easy bleeding, Denies easy bruising Past Medical History Past Medical History: No Reported History Additional Past Medical History / Comment(s): Pt is 33 weeks gestation. past ectopic . 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 She lives with her significant other. She is independent. Smoking Status: Never smoker Past Alcohol Use History: None Reported Additional Past Alcohol Use History / Comment(s): Pt states she is exposed to 2nd hand smoke. Past Drug Use History: None Reported - Past Family History Father History Unknown: Yes Additional Family Medical History / Comment(s): Pt was adopted out of [facility]. She knows her father from a rickshaw accident. Mother History Unknown: Yes Additional Family Medical History / Comment(s): Pt was adopted. Medications and Allergies Home Medications Medication Instructions Recorded Confirmed Type Acetaminophen Tab [Tylenol Tab] 325 - 650 mg PO Q6H PRN 08/16/16 08/16/16 History Acetaminophen/Diphenhydramine 1 - 2 tab PO HS PRN 08/16/16 08/16/16 History [Tylenol PM 500-25mg] Loratadine [Claritin] 10 mg PO DAILY 08/16/16 08/16/16 History Omeprazole 40 mg PO DAILY 08/16/16 08/16/16 History Allergies Allergy/AdvReac Type Severity Reaction Status Date / Time iodine Allergy Rash/Hives Verified 08/16/16 21:05 latex Allergy Unknown Verified 08/16/16 21:05 Childhood peanut Allergy Rash/Hives Verified 08/16/16 21:05 Exam - Vital Signs Vital signs: Vital Signs Temp Pulse Pulse Resp BP BP Pulse Ox 08/17/16 07:20 97.7 F 113 H 14 100/58 97 08/17/16 04:00 104 H 16 109/73 99 08/16/16 23:36 97.7 F 117 H 20 116/85 99 Intake and Output 08/16/16 08/17/16 08/17/16 22:59 06:59 14:59 Other: # Voids 1 Weight 61.9 kg This is a pleasant, visibly gravid woman in no apparent distress. HEENT exam is unremarkable with no sinus pain. The lungs are clear to auscultation bilaterally without wheezing or consolidation. The heart is of regular rhythm however is tachycardic. No detectable murmur. The abdomen is gravid, soft and nontender. She has no lower extremity edema or tenderness. Nonstress testing is reassuring at this time. Results Result Diagrams: 08/16/16 21:45 08/16/16 21:45 US - abdomen: report reviewed Assessment and Plan (1) Anemia Narrative/Plan: No acute bleeding episode. Likely iron deficiency anemia of . Will start her on oral iron supplementation twice a day in addition to her vitamin. Status: Acute (2) Narrative/Plan: Reassuring status by ultrasound and nonstress testing. Estimated weight greater than the 97th percentile. No evidence of labor. Status: Acute (3) Tachycardia Narrative/Plan: Sinus tachycardia. She has completed a thorough workup recently including cardiology consultation , evaluation for pulmonary embolism which was negative and echocardiogram which was normal. Currently her heart rate is approximately 120 bpm and she is asymptomatic. Telemetry shows no arrhythmias. She will therefore be discharged home on having completed observation. 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 Status: Acute
== END 2016-08-17 11:06 | disposition home or self-care (01) ==
LOC: EC 20:35 → 6SEL 22:43 → INTOOBSV 22:43
PROVIDERS: ADMIT Obstetrics & Gynecology; ATTEND Obstetrics & Gynecology
DX: O99.013 Anemia complicating pregnancy, third trimester (principal); O99.353 Diseases of the nervous system complicating pregnancy, third trimester; D50.9 Iron deficiency anemia, unspecified; O99.343 Other mental disorders complicating pregnancy, third trimester; F41.9 Anxiety disorder, unspecified; R53.83 Other fatigue; R06.02 Shortness of breath; R00.0 Tachycardia, unspecified; F90.9 Attention-deficit hyperactivity disorder, unspecified type; Z79.899 Other long term (current) drug therapy; Z86.19 Personal history of other infectious and parasitic diseases; Z87.42 Personal history of other diseases of the female genital tract; Z87.19 Personal history of other diseases of the digestive system; Z91.041 Radiographic dye allergy status; Z91.040 Latex allergy status; Z91.010 Allergy to peanuts; Z77.22 Contact with and (suspected) exposure to environmental tobacco smoke (acute) (chronic); Z90.79 Acquired absence of other genital organ(s); Z3A.33 33 weeks gestation of pregnancy
CPT/HCPCS: 99285; 36415; 93005; 80053; 85025; 85610; 85730; 76805; G0378 ×2

== ENCOUNTER 2016-09-17 13:26 | Inpatient (IN) | payer OTHER ==
[2016-09-17] MEDS ORDERED: ceFAZolin 2 GM in SODIUM CHLORIDE 0.9% 100 ML IVPB ONE (13:50)
[2016-09-17] MEDS ORDERED: CITRIC ACID-SODIUM CITRATE 15 ML CUP PO ONE (13:50)
[2016-09-17 14:17] LABS: Anisocytosis Slight; Aty Lym Flag Moderate; CH 25.7; HCT 31.7 % (34.0-46.0); HDW 3.75; HGB 10.2 gm/dL (11.4-16.0); Hypochromasia Moderate; MCH 25.9 pg (25.0-35.0); MCHC 32.1 g/dL (31.0-37.0); MCV 80.8 fL (80.0-100.0); Mean Platelet Volume 9.6; Microcytosis Slight; Poikilocytosis Slight; RBC 3.92 m/uL (3.80-5.40); RDW 19.1 % (11.5-15.5); WBC (Perox) 8.77
[2016-09-17 14:28] VITALS: BMI 27.0
--- NOTE | 2016-09-17 14:31 | P.HPOB ---
History of Present Illness H&P Date: 09/17/16 Chief Complaint: Spontaneous rupture of membranes This is a 36-year-old 2 para 0010 woman with an estimated due date of based on LMP who presents at 37-3/7 weeks gestation with spontaneous rupture of membranes. She reports leakage of clear fluid starting approximately 11:30 AM. She denies contractions, abdominal pain or vaginal bleeding. She was a planned primary low transverse section secondary to history of anal and perineal surgeries as a child. She has chronic pain in this area and the decision was made to avoid vaginal delivery. She has also been evaluated throughout the for idiopathic tachycardia. Cardiology workup has been entirely negative. She has a history of anxiety and depression. Laboratory data: Group B strep negative, blood type B positive, antibody screen negative, rubella immune, VDRL nonreactive, hepatitis B surface antigen negative , HIV negative. Review of Systems All systems: negative Past Medical History Past Medical History: No Reported History Additional Past Medical History / Comment(s): Tachicardia during , past ectopic . 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 She lives with her significant other. She is independent. Smoking Status: Never smoker Past Alcohol Use History: None Reported Additional Past Alcohol Use History / Comment(s): Pt states she is exposed to 2nd hand smoke. Past Drug Use History: None Reported - Past Family History Father History Unknown: Yes Additional Family Medical History / Comment(s): Pt was adopted out of [facility]. She knows her father from a rickshaw accident. Mother History Unknown: Yes Additional Family Medical History / Comment(s): Pt was adopted. Medications and Allergies Home Medications Medication Instructions Recorded Confirmed Type Albuterol Sulfate [Ventolin HFA] 2 puff INHALATION DIRECTED PRN 09/17/16 History Allergies Allergy/AdvReac Type Severity Reaction Status Date / Time iodine Allergy Rash/Hives Verified 09/17/16 13:30 latex Allergy Anaphylaxis Verified 09/17/16 13:30 peanut Allergy Rash/Hives Verified 09/17/16 13:30 Exam - Vital Signs Vital signs: Vital Signs Temp Pulse Resp BP 09/17/16 13:32 97.9 F 99 16 137/86 Intake and Output 09/16/16 09/17/16 09/17/16 22:59 06:59 14:59 Other: Weight 64.864 kg Patient Weight 09/18/16 06:59 Weight 64.864 kg This is a pleasant visibly gravid female in no apparent distress. Targeted physical exam is performed. Abdomen is gravid, soft and nontender. There is no flank pain. On pelvic examination rupture of membranes is confirmed. The cervix is 1 cm dilated and 90% effaced. There is scarring in the perineal area consistent with her surgical history. The extremities are free of any significant edema or asymmetry. heart tones are reassuring by external monitoring and she is chana irregularly. Results Result Diagrams: 09/17/16 14:10 Abnormal Lab Results - Last 24 Hours (Table) 09/17/16 Range/Units 14:10 Hgb 10.2 L (11.4-16.0) gm/dL Hct 31.7 L (34.0-46.0) % RDW 19.1 H (11.5-15.5) % Assessment and Plan (1) 37 or more weeks gestation of Status: Acute (2) Spontaneous rupture of membranes Status: Acute (3) History of rectal surgery Status: Acute Plan: 36-year-old 2 para 0010 woman who presents at 37+ weeks gestation with spontaneous rupture of membranes not in active labor. She is planned for a primary low transverse section secondary to a history of extensive rectal and perineal surgery as a child. The risks, benefits and alternatives of this mode of delivery have been reviewed with her in the office setting. She declines any further questions today and consent is obtained for primary low transverse section. status is currently reassuring by external monitoring. She is group B strep negative and Rh+.
[2016-09-17 14:42] LABS: Add Differential Manual Differential
[2016-09-17 14:44] LABS: Manual Review Performed; Nucleated Red Blood Cells 0 /100 WBC (0-0); Total Cells Counted 100
[2016-09-17] MEDS ORDERED: LACTATED RINGERS 1,000 ML BAG IV ONE (15:16)
[2016-09-17] MEDS ORDERED: ONDANSETRON 4 MG/2 ML VIAL ONE (15:16)
[2016-09-17] MEDS ORDERED: OXYTOCIN 10 UNIT/ML 1 ML VIAL IM ONE (15:16)
[2016-09-17] MEDS ORDERED: fentaNYL (PF) 50 MCG/ML 2 ML AMP ONE (15:16)
[2016-09-17] MEDS ORDERED: MORPHINE SULFATE (PF) 0.3 MG/0.3 ML SYR ONE (15:16)
[2016-09-17] MEDS ORDERED: KETOROLAC 30 MG/ML 1 ML VIAL ONE (15:16)
[2016-09-17] MEDS ORDERED: PHENYLEPHRINE-0.9% NACL SYG 1 MG/10 ML SYRINGE ONE (15:16)
[2016-09-17] MEDS ORDERED: NALBUPHINE 10 MG/ML AMPUL ONE (15:16)
[2016-09-17] MEDS ORDERED: diphenhydrAMINE 50 MG/ML 1 ML VIAL IVP PRN (16:12)
[2016-09-17] MEDS ORDERED: diphenhydrAMINE 25 MG CAP PO PRN (16:12)
[2016-09-17] MEDS ORDERED: NALOXONE 0.4 MG/ML 1 ML VIAL IV PRN (16:12)
[2016-09-17] MEDS ORDERED: ONDANSETRON 4 MG/2 ML VIAL IVP PRN (16:12)
[2016-09-17] MEDS ORDERED: diphenhydrAMINE 50 MG CAP PO PRN (16:12)
[2016-09-17] MEDS ORDERED: METOCLOPRAMIDE 5 MG/ML 2 ML VIAL IVP PRN (16:12)
[2016-09-17] MEDS ORDERED: ZOLPIDEM 5 MG TAB PO PRN (16:12)
[2016-09-17] MEDS ORDERED: Acetaminophen-Codeine 300-30mg TAB PO PRN (16:12)
[2016-09-17] MEDS ORDERED: ACETAMINOPHEN TAB 325 MG TAB PO PRN (16:12)
--- NOTE | 2016-09-17 16:12 | P.OP ---
Date of Procedure: 09/17/16 Preoperative Diagnosis: Intrauterine at 37-5/7 weeks gestation Spontaneous rupture of membranes History of rectal surgeries Planned elective primary low transverse section Postoperative Diagnosis: Same Procedure(s) Performed: Primary low transverse section Anesthesia: spinal Surgeon: Rocio Minor Finishing Supervisor #1: Ed Duarte Estimated Blood Loss (ml): 400 IV fluids (ml): 1,400 Urine output (ml): 300 Pathology: other (Placenta) Condition: stable Disposition: floor Operative Findings: Female in the vertex presentation with Apgars of 8 at 1 minute and 9 at 5 minutes weighing 7 lbs. 7 oz., 3360 g. Intact, three-vessel cord placenta. Description of Procedure: After the patient was met preoperatively and all questions were answered, she was taken to the operating room where spinal anesthetic was administered without incident. She was then positioned, prepped and draped in the dorsal supine position with a leftward tilt. Lowry catheter was placed. After anesthetic was confirmed adequate, a low transverse skin incision was made following the pre-existing scar. This was carried down to the underlying fascia both sharply and with the electrocautery. The fascia was then incised in the midline and extended bilaterally with the Pedro scissors. The superior aspect of the fascial incision was elevated and the underlying rectus muscles dissected off sharply and with the electrocautery. The inferior aspect of the fascial incision was also elevated and the underlying rectus muscles dissected off sharply. The muscles were adherent in the midline. These were bluntly and the peritoneum was tented up with hemostats. The peritoneum was entered sharply with the Metzenbaum scissors. The peritoneal incision was extended inferiorly and superiorly with good visualization of the bladder. The bladder blade was placed. The vesicouterine peritoneum was identified, tented up and entered sharply, the bladder flap was created both sharply and digitally. A low transverse uterine incision was then made sharply and carried down to the underlying amniotic membranes. Membranes were ruptured and clear fluid was noted. The uterine incision was extended bilaterally bluntly. The infant's head was delivered from the incision without difficulty. The nose and mouth were bulb suctioned. The rest of the infant was delivered onto the field without difficulty. And cut and the was taken to the warmer. An intact , three-vessel cord placenta was then manually removed and the uterus was exteriorized. The uterus was cleared of all clot and debris. The uterine incision was delineated with Taylor clamps. The uterine incision was then closed in a running locked fashion with 0 Vicryl suture. A second imbricating layer of the same was placed. Additional [id number] sutures were placed where necessary along the incision for hemostasis. The uterus was then returned to the abdomen and the gutters were cleared of all clot and debris. The uterine incision was reinspected and Bovie electrocautery was utilized were necessary for hemostasis. The fascial edges, peritoneal edges and rectus muscles were inspected and Bovie electrocautery utilized were necessary for hemostasis. The fascia was then closed in a running fashion with 0 Vicryl suture. There was additional bleeding noted after closure of the fascia that was felt to be excessive. The fascia was then reopened and the uterine incision was reinspected. No active bleeding along the entire length of the uterus was noted. The rectus muscles were reinspected and no active bleeding was noted. The fascia was then reclosed. The subcuticular tissue was copiously suction irrigated and Bovie electrocautery utilized were necessary for hemostasis. 3-0 Vicryl suture was utilized to reapproximate the subcuticular tissue. The skin was then closed in a subcutaneous fashion with 4- 0 Vicryl suture. All counts reported to me as correct by the operating room staff at the end of the procedure. The patient received antibiotics preoperatively and Pitocin following cord clamp. Mother and infant were both transported from the room in stable condition.
[2016-09-17] MEDS ORDERED: OXYTOCIN 30 UNITS/500 ML NS 30 UNIT in SALINE 1 500ML.BAG IV SCH (16:15)
[2016-09-17] MEDS: LACTATED RINGERS 1,000 ML IV SCH (16:53)
[2016-09-17] MEDS ORDERED: SILVER NITRATE APPLICATOR 1 EACH STICK..EA. TOPICAL ONE ×2 (20:10→20:21)
--- NOTE | 2016-09-17 20:16 | P.PN ---
Progress Note - Text I was called to evaluate excessive bleeding from the incision. Evaluation at the bedside shows an active small arterial bleed at the posterior skin admission on the right lateral aspect of the incision. Silver nitrate is applied and pressure is held to the area. Complete hemostasis is noted. Pressure dressing is applied after Steri-Strips were replaced.
[2016-09-17] MEDS: diphenhydrAMINE 50 MG/ML 1 ML VIAL IVP PRN ×2 (20:19→20:45)
[2016-09-17 20:45] LABS: Anisocytosis Slight; Basophils % (A) 0 %; CH 25.4; CHCM 31.6; Eosinophils % (A) 0 %; HCT 28.5 % (34.0-46.0); HDW 3.67; Hypochromasia Moderate; Luc # (Auto) 0.33; Luc % (Auto) 3; Lymphocytes # (A) 1.3 k/uL (1.0-4.8); Lymphocytes % (A) 12 %; MCH 25.7 pg (25.0-35.0); MCHC 31.7 g/dL (31.0-37.0); MCV 81.1 fL (80.0-100.0); Mean Platelet Volume 9.9; Microcytosis Slight; Monocytes # (A) 0.4 k/uL (0-1.0); Monocytes % (A) 3 %; Neutrophils % (A) 81 %; Poikilocytosis Slight; RBC 3.51 m/uL (3.80-5.40); RDW 18.9 % (11.5-15.5); WBC 11.1 k/uL (3.8-10.6); WBC (Perox) 11.51
[2016-09-17] MEDS: SENNOSIDES-DOCUSATE SODIUM 1 EACH TAB PO SCH (22:10)
[2016-09-17] MEDS: KETOROLAC 30 MG/ML 1 ML VIAL IVP PRN (23:11)
[2016-09-18] MEDS: LACTATED RINGERS 1,000 ML IV SCH (04:52)
[2016-09-18 10:10] LABS: Anisocytosis Slight; Basophils % (A) 1 %; CH 25.5; CHCM 31.5; Eosinophils % (A) 0 %; HCT 25.3 % (34.0-46.0); HDW 3.63; HGB 7.8 gm/dL (11.4-16.0); Hypochromasia Moderate; Luc % (Auto) 4; Lymphocytes # (A) 0.9 k/uL (1.0-4.8); Lymphocytes % (A) 10 %; MCH 25.3 pg (25.0-35.0); MCHC 30.9 g/dL (31.0-37.0); MCV 81.7 fL (80.0-100.0); Mean Platelet Volume 8.4; Microcytosis Slight; Monocytes # (A) 0.3 k/uL (0-1.0); Monocytes % (A) 4 %; Neutrophils # (A) 7.1 k/uL (1.3-7.7); Neutrophils % (A) 82 %; Poikilocytosis Slight; RBC 3.09 m/uL (3.80-5.40); RDW 19.3 % (11.5-15.5); WBC 8.7 k/uL (3.8-10.6); WBC (Perox) 9.01
--- NOTE | 2016-09-18 11:38 | P.PNOBGPC ---
Subjective - Subjective Principal diagnosis: Postop day 1 Interval history: She reports feeling very well. On no bleeding from incision throughout the night according to the nursing staff. Patient reports: Reports appetite normal, Reports voiding normally, Reports pain well controlled, Reports ambulating normally, Denies nauseated : doing well Objective - Vital Signs Latest vital signs: Vital Signs Temp Pulse Resp BP Pulse Ox 09/18/16 08:00 98.2 F 103 H 16 124/78 09/18/16 06:00 18 09/18/16 04:00 99.0 F 100 18 120/87 100 09/17/16 23:18 99.6 F 102 H 15 128/84 09/17/16 20:00 98.4 F 83 14 133/74 09/17/16 18:15 92 14 128/79 09/17/16 17:45 93 14 131/89 09/17/16 17:09 80 14 117/75 09/17/16 17:00 97 F L 83 14 115/76 100 09/17/16 16:45 77 16 120/75 100 09/17/16 16:28 88 14 130/80 09/17/16 16:15 96.8 F L 95 16 127/79 09/17/16 14:07 97.3 F L 90 16 134/90 09/17/16 13:50 97.7 F 103 H 16 134/90 09/17/16 13:32 97.9 F 99 16 137/86 Intake and Output 09/17/16 09/18/16 09/18/16 22:59 06:59 14:59 Output Total 750 225 Balance -750 -225 Output: Urine 750 225 Uretheral (Lowry) 75 Other: Voiding Method Indwelling Catheter # Voids 1 - Exam Extremities: Present: normal Abdomen: Present: normal appearance, soft, tenderness. Absent: distention Incision: Present: normal, dry, intact Uterus: Present: normal, firm - Labs Labs: Abnormal Lab Results - Last 24 Hours (Table) 09/17/16 09/17/16 09/18/16 Range/Units 14:10 20:12 09:31 WBC 11.1 H (3.8-10.6) k/uL RBC 3.51 L 3.09 L (3.80-5.40) m/uL Hgb 10.2 L 9.0 L 7.8 L (11.4-16.0) gm/dL Hct 31.7 L 28.5 L 25.3 L (34.0-46.0) % MCHC 30.9 L (31.0-37.0) g/dL RDW 19.1 H 18.9 H 19.3 H (11.5-15.5) % Neutrophils # 9.0 H (1.3-7.7) k/uL Lymphocytes # 0.9 L (1.0-4.8) k/uL Assessment and Plan (1) 37 or more weeks gestation of Current Visit: Yes Status: Acute Code(s): [id number] - SNOMED Code(s): 47081640 (2) Spontaneous rupture of membranes Current Visit: Yes Status: Acute Code(s): NKK8204 - SNOMED Code(s): 615673700 (3) History of rectal surgery Current Visit: Yes Status: Acute Code(s): Z98.890 - OTHER SPECIFIED POSTPROCEDURAL STATES SNOMED Code(s): 830593517 (4) Anemia Narrative/Plan: Chronic anemia with superimposed postoperative anemia. She is asymptomatic and is otherwise hemodynamically stable. Current Visit: No Status: Acute Code(s): D64.9 - ANEMIA, UNSPECIFIED SNOMED Code(s): 892654411 (5) S/P section Narrative/Plan: Postop day 1 status post primary low transverse section for spontaneous rupture of membranes and history of rectal surgery, planned primary . She is recovering well. She did have some bleeding from the superficial aspect of the incision last night. This is completely resolved. See prior progress note. She has no current active bleeding in the incision appears normal and well healing. Current Visit: Yes Status: Acute Code(s): Z98.891 - HISTORY OF UTERINE SCAR FROM PREVIOUS SURGERY SNOMED Code(s): 490319631
[2016-09-18] MEDS: KETOROLAC 30 MG/ML 1 ML VIAL IVP PRN (11:51)
[2016-09-18] MEDS: SENNOSIDES-DOCUSATE SODIUM 1 EACH TAB PO SCH ×2 (11:52→20:43)
[2016-09-18] MEDS: Acetaminophen-Codeine 300-30mg TAB PO PRN ×2 (16:24→20:44)
[2016-09-19] MEDS: IBUPROFEN 600 MG TAB PO PRN ×3 (00:59→23:48)
--- NOTE | 2016-09-19 07:55 | P.PN ---
Progress Note - Text Date:09/18 Time:2129 Patient is status post . Patient seen this morning with VAS score of 2. c/o of pruritus, no c/o nausea/vomiting, comfortable and doing well.
[2016-09-19] MEDS: SENNOSIDES-DOCUSATE SODIUM 1 EACH TAB PO SCH ×2 (08:32→21:40)
[2016-09-19] MEDS: Acetaminophen-Codeine 300-30mg TAB PO PRN ×2 (08:32→19:38)
--- NOTE | 2016-09-19 09:22 | P.PNOBGPC ---
Subjective - Subjective Patient reports: Reports appetite normal, Reports voiding normally, Reports pain well controlled, Reports ambulating normally : doing well Objective - Vital Signs Latest vital signs: Vital Signs Temp Pulse Resp BP Pulse Ox 09/19/16 08:00 97.8 F 98 20 135/93 99 09/19/16 00:00 98.3 F 100 16 120/70 09/18/16 20:00 98.5 F 100 16 122/74 09/18/16 16:00 98.1 F 103 H 16 117/72 09/18/16 12:00 97.8 F 103 H 16 134/82 Intake and Output 09/18/16 09/19/16 09/19/16 22:59 06:59 14:59 Other: Voiding Method Indwelling Catheter - Exam Lungs: bilateral: normal Chest: Normal S1, Normal S2 Extremities: Present: normal Abdomen: Present: normal appearance, soft. Absent: distention, tenderness Incision: Present: normal, dry, intact Uterus: Present: normal, firm (The uterine fundus as tonic and nontender just below the umbilicus.) - Labs Labs: Abnormal Lab Results - Last 24 Hours (Table) 09/18/16 Range/Units 09:31 RBC 3.09 L (3.80-5.40) m/uL Hgb 7.8 L (11.4-16.0) gm/dL Hct 25.3 L (34.0-46.0) % MCHC 30.9 L (31.0-37.0) g/dL RDW 19.3 H (11.5-15.5) % Lymphocytes # 0.9 L (1.0-4.8) k/uL Assessment and Plan (1) S/P section Narrative/Plan: Continue routine postoperative care. Anticipate discharge home tomorrow pending no further complications or concerns. Current Visit: Yes Status: Acute Code(s): Z98.891 - HISTORY OF UTERINE SCAR FROM PREVIOUS SURGERY SNOMED Code(s): 847002338
[2016-09-19] MEDS: ESCITALOPRAM 20 MG TAB PO SCH (21:40)
[2016-09-20 04:10] VITALS: TEMP 97.8
[2016-09-20 08:04] VITALS: BP 132/87; PULSE 96; RESP 14
[2016-09-20] MEDS: IBUPROFEN 600 MG TAB PO PRN (08:17)
[2016-09-20] MEDS: ESCITALOPRAM 20 MG TAB PO SCH (08:18)
[2016-09-20] MEDS: SENNOSIDES-DOCUSATE SODIUM 1 EACH TAB PO SCH (08:19)
--- NOTE | 2016-09-20 08:49 | P.DS ---
Providers Date of admission: 09/17/16 13:54 Expected date of discharge: 09/20/16 Attending physician: Danny Blevins - Discharge Diagnosis(es) (1) S/P section Current Visit: Yes Status: Acute Hospital Course: The patient is a 36 year 2 para 0010 admitted at 37-3/7 weeks by good dating parameters with documented spontaneous rupture of membranes of clear fluid. Her has been complicated by fairly significant anxiety and she has a history from childhood of multiple rectal perineal and low back surgeries and requested primary section so as not to cause any further damage to this area. She additionally had a history of idiopathic tachycardia which was worked up by cardiology and was completely negative. On labor and delivery, she was taken the operating room where she was delivered by primary low-transverse section of a viable 7 lbs. 7 oz. baby girl with Apgars of 8 at 1 minute and 9 at 5 minutes. Her and postoperative course was unremarkable with vital signs remained stable and her temperature was afebrile throughout. She was deemed stable for discharge by postoperative day # 3 and was discharged home to follow-up in the office in 2 weeks for an incision check and 6 weeks' time routinely. Discharge instructions included calling for any significantly increased bleeding or foul-smelling lochia, significantly increased fever abdominal pain, perineal complaints, breast complaints, incisional complaints, or anything else that concerned her. She is additionally instructed to have nothing in the vagina for at least 6 weeks time to include intercourse. She was instructed to do no heavy lifting over the same period of time. She was lastly instructed to do no driving until off of all pain medications or 2 weeks' time, whichever came first. She understood her instructions and agrees to follow up as noted above. Discharge medications included a prescription for Tylenol 3, 1-2 by mouth every 6 hours when necessary pain, #30 dispensed with no refills. She is additionally to continue vitamins as she has opted to breast-feed. She will otherwise use over- the-counter analgesic pain medications as well and as needed. She will continue her Lexapro 20 mg daily at home. Maternal blood type is B+ and rubella status is immune. Discharge hemoglobin and hematocrit were 7.8 and 25.3 respectively. She therefore was to use iron sulfate daily for the next 1- 2 months to rebuild her hemoglobin. Procedures: #1. Primary low-transverse section Patient Condition at Discharge: Good Plan - Discharge Summary New Discharge Prescriptions: Acetaminophen-Codeine 300-30mg [Tylenol #3] 2 tab PO Q6H PRN #30 tablet PRN Reason: Pain Discharge Medication List Albuterol Sulfate [Ventolin HFA] 2 puff INHALATION DIRECTED PRN 09/17/16 [ History] Acetaminophen-Codeine 300-30mg [Tylenol #3] 2 tab PO Q6H PRN #30 tablet [Rx] Follow up Appointment(s)/Referral(s): Danny Blevins MD [STAFF PHYSICIAN] - 2 Weeks Discharge Disposition: HOME SELF-CARE
== END 2016-09-20 11:59 | disposition home or self-care (01) | DRG 765 ==
LOC: FBPOP 13:26 → 4FBP 13:54
PROVIDERS: ADMIT Obstetrics & Gynecology; ATTEND Obstetrics & Gynecology
PROC: 10D00Z1 Extraction of Products of Conception, Low, Open Approach (ICD-10-PCS; principal; 2016-09-17 15:00)
DX: O99.344 Other mental disorders complicating childbirth (principal); O99.42 Diseases of the circulatory system complicating childbirth; R00.0 Tachycardia, unspecified; O99.02 Anemia complicating childbirth; D64.9 Anemia, unspecified; Z37.0 Single live birth; Z3A.37 37 weeks gestation of pregnancy; F41.9 Anxiety disorder, unspecified; F90.9 Attention-deficit hyperactivity disorder, unspecified type; G89.29 Other chronic pain; Z79.899 Other long term (current) drug therapy
CPT/HCPCS: 59025; 84112; 85025; 86850; 86900; 86901; 88307; 99213

== ENCOUNTER → 2018-01-26 | Outpatient (CLI) | payer OTHER | END | disposition home or self-care (01) | LOC: LABWHC1 10:26 | PROVIDERS: ATTEND Obstetrics & Gynecology | DX: O20.0 Threatened abortion (principal); Z3A.00 Weeks of gestation of pregnancy not specified | CPT/HCPCS: 36415; 84702 ==

== ENCOUNTER → 2018-02-05 | Outpatient (CLI) | payer OTHER | END | disposition home or self-care (01) | LOC: LABWHC1 11:08 | PROVIDERS: ATTEND Obstetrics & Gynecology | DX: O02.1 Missed abortion (principal); Z3A.00 Weeks of gestation of pregnancy not specified | CPT/HCPCS: 36415; 84702 ==

== ENCOUNTER → 2018-03-24 | Outpatient (CLI) | payer OTHER | END | disposition home or self-care (01) | LOC: LABWHC1 10:21 | PROVIDERS: ATTEND Obstetrics & Gynecology | DX: O03.4 Incomplete spontaneous abortion without complication (principal) | CPT/HCPCS: 36415; 84702 ==

== ENCOUNTER → 2018-04-07 | Outpatient (CLI) | payer OTHER | END | disposition home or self-care (01) | LOC: LABWHC1 11:52 | PROVIDERS: ATTEND Obstetrics & Gynecology | DX: O02.1 Missed abortion (principal) | CPT/HCPCS: 36415; 84702 ==

== ENCOUNTER → 2018-05-02 | Outpatient (CLI) | payer OTHER ==
--- NOTE | 2018-05-02 22:47 | US ---
EXAMINATION TYPE: Transabdominal DATE OF EXAM: 09/26/17 COMPARISON: NONE CLINICAL HISTORY: Viability , positive beta-hCG test. Small for dates. EXAM PERFORMED: Transabdominal (TA) EXAM MEASUREMENTS: GESTATIONAL AGE / DATING Physician Established: Not yet established Dates by LMP: LMP unknown Dates by First Scan: No previous this is first scan Dates by Current Scan for: (9 weeks/0 days) EDC: 12/05/2018 MATERNAL ANATOMY Uterus: 9.2 x 6.5 x 6.0 cm Right Ovary: 1.7 x 1.0 x 1.3 cm Left Ovary: 2.1 x 1.4 x 1.6 cm Post CDS / Adnexa: wnl Presence of free fluid: No Presence of corpus luteal cyst: No Presence of subchorionic bleed: No GESTATION / SURVEY CRL: 2.25 cm (9 weeks/0 days) Yolk Sac (normal less than 6mm): 4 mm Heart Rate: 176 bpm Rhythm: Normal IUP: Viable IUP Date of LMP: Unknown Beta HcG (if available): Not available at this time Viable IUP, [place] 12/05/2018. Hypoechoic area visualized measuring 2.1 x 0.9 x 1.5 cm, possible fibroid . Single live intrauterine gestation is seen as gestational sac, yolk sac, pole are identified. I n the periphery of the uterus there is a 2.1 cm oval hypoechoic lesion tapering subserosal fibroid. N o free fluid is seen in pelvic cul-de-sac. Both ovaries are seen. No suspicious extra ovarian adnexal masses are present. IMPRESSION: Single live intrauterine gestation is seen, mean crown-rump length is 2.25 cm corresponding to 9 week s 0 day old fetus.
== END ==
LOC: RADUSWWP 15:46
PROVIDERS: ATTEND Obstetrics & Gynecology
DX: O36.5910 Maternal care for other known or suspected poor fetal growth, first trimester, not applicable or unspecified (principal); Z3A.09 9 weeks gestation of pregnancy
CPT/HCPCS: 76801

== ENCOUNTER 2018-11-30 06:13 | Inpatient (IN) | payer OTHER ==
[~2018-11-30 06:13] MED LIST: TRIAMCINOLONE ACETONIDE 40 MG/ML 1 ML VIAL INTRADERMA ONE
[2018-11-30] MEDS ORDERED: LACTATED RINGERS 1,000 ML IV ONE (06:37)
[2018-11-30] MEDS ORDERED: ceFAZolin IN SWFI 2 GM/20 ML SYRINGE IVP ONE (06:37)
[2018-11-30] MEDS ORDERED: CITRIC ACID-SODIUM CITRATE 15 ML CUP PO ONE (06:37)
[2018-11-30 06:54] VITALS: BMI 27.3
[2018-11-30] MEDS ORDERED: MORPHINE SULFATE (PF) 0.3 MG/0.3 ML SYR ONE (08:09)
[2018-11-30] MEDS ORDERED: NALBUPHINE 10 MG/ML (1 ML AMP) ONE (08:09)
[2018-11-30] MEDS ORDERED: OXYTOCIN 10 UNIT/ML 1 ML VIAL ONE (08:09)
[2018-11-30] MEDS ORDERED: KETOROLAC 30 MG/ML 1 ML VIAL ONE (08:09)
[2018-11-30] MEDS ORDERED: ONDANSETRON 4 MG/2 ML VIAL ONE (08:09)
[2018-11-30] MEDS ORDERED: PHENYLEPHRINE-0.9% NACL SYG 1 MG/10 ML SYRINGE ONE (08:09)
[2018-11-30 08:27] LABS: Anisocytosis Slight; Basophils % (A) 0 %; Eosinophils % (A) 0 %; HCT 35.6 % (34.0-46.0); HGB 11.1 gm/dL (11.4-16.0); Hypochromasia Slight; Lymphocytes # (A) 1.4 k/uL (1.0-4.8); Lymphocytes % (A) 22 %; MCH 25.2 pg (25.0-35.0); MCHC 31.1 g/dL (31.0-37.0); MCV 81.1 fL (80.0-100.0); Mean Platelet Volume 9.3; Monocytes # (A) 0.4 k/uL (0-1.0); Monocytes % (A) 6 %; Neutrophils # (A) 4.6 k/uL (1.3-7.7); Neutrophils % (A) 69 %; Platelet Count 226 k/uL (150-450); RBC 4.39 m/uL (3.80-5.40); RDW 16.6 % (11.5-15.5); WBC 6.6 k/uL (3.8-10.6)
[2018-11-30] MEDS ORDERED: SIMETHICONE 80 MG CHEWABLE PO PRN (09:12)
[2018-11-30] MEDS ORDERED: diphenhydrAMINE 50 MG/ML 1 ML VIAL IVP PRN ×2 (09:12)
[2018-11-30] MEDS ORDERED: NALOXONE 0.4 MG/ML 1 ML VIAL IV PRN (09:12)
[2018-11-30] MEDS ORDERED: diphenhydrAMINE 50 MG CAP PO PRN (09:12)
[2018-11-30] MEDS ORDERED: HYDROcodone/APAP 5-325MG 1 EACH TAB PO PRN (09:12)
[2018-11-30] MEDS ORDERED: LANOLIN CREAM 5 GM TUBE TOPICAL PRN (09:12)
[2018-11-30] MEDS ORDERED: METOCLOPRAMIDE 5 MG/ML 2 ML VIAL IVP PRN (09:12)
[2018-11-30] MEDS ORDERED: ZOLPIDEM 5 MG TAB PO PRN (09:12)
[2018-11-30] MEDS ORDERED: HYDROcodone/APAP 7.5-325MG 1 EACH TAB PO PRN (09:12)
[2018-11-30] MEDS ORDERED: ACETAMINOPHEN TAB 325 MG TAB PO PRN (09:12)
[2018-11-30] MEDS ORDERED: diphenhydrAMINE 25 MG CAP PO PRN (09:12)
[2018-11-30] MEDS ORDERED: ONDANSETRON 4 MG/2 ML VIAL IVP PRN (09:12)
[2018-11-30] MEDS ORDERED: OXYTOCIN 20 UNITS/1000 ML NS 1,000 ML IV SCH (09:15)
--- NOTE | 2018-11-30 09:22 | P.HPOB ---
History of Present Illness H&P Date: 11/30/18 Chief Complaint: 39-2/7 weeks, previous section, requesting repeat The patient is a 38-year-old 4 para 10-1 admitted at 39-2/7 weeks as established by 9 week ultrasound. She is admitted for repeat low transverse section having undergone a similar procedure in the past and declining vaginal trial of labor. Her has been essentially uncomplicated though she was diagnosed with presumptive gestational diabetes as she could not tolerate the diabetic testing. She also was found to be rubella nonimmune. On labor and delivery, all signs are reassuring. She has developed following her previous surgery an extremely large keloid scar which I have agreed to excise and attempt to prevent from recurring. Group B strep status is negative. Obstetrical history 4 para 10-1 with 2 early miscarriages not requiring D&C and one previous delivery at term. Current statistics are listed in history present illness. EDC of 12/05/2018 was established by 9 week ultrasound. Laboratory workup demonstrates a blood type of B+ with a negative antibody screen. Rubella status is nonimmune. The remainder of the laboratory workup was within normal limits though, as noted above, she did not tolerate the one hour glucose tolerance test and was therefore given the diagnosis of presumptive gestational diabetes. Blood sugar monitoring throughout the was reassuring as was testing. Gynecologic history: Unremarkable with no history of any infections to include STDs. Review of Systems Review of systems is confined to history of present illness. 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 She lives with her significant other. She is independent. Smoking Status: Never smoker Past Alcohol Use History: None Reported Additional Past Alcohol Use History / Comment(s): Pt states she is exposed to 2nd hand smoke. Past Drug Use History: None Reported - Past Family History Father History Unknown: Yes Additional Family Medical History / Comment(s): Pt was adopted out of [facility]. She knows her father from a rickshaw accident. Mother History Unknown: Yes Additional Family Medical History / Comment(s): Pt was adopted. Medications and Allergies Home Medications Medication Instructions Recorded Confirmed Type Acetaminophen/Diphenhydramine 1 tab PO HS 10/01/18 11/30/18 History [Tylenol PM 500-25mg] Pnv No.95/Ferrous Fum/Folic AC 1 each PO DAILY 10/01/18 11/30/18 History [ Multivitamin Tablet] Allergies Allergy/AdvReac Type Severity Reaction Status Date / Time iodine Allergy Rash/Hives Verified 11/30/18 06:28 latex Allergy Anaphylaxis Verified 11/30/18 06:28 peanut Allergy Rash/Hives Verified 11/30/18 06:28 Exam Vital Signs Temp Pulse Resp BP Pulse Ox 11/30/18 06:26 96.7 F L 87 16 116/82 100 Intake and Output 11/29/18 11/30/18 11/30/18 22:59 06:59 14:59 Other: Weight 65.771 kg In general, this is a well-developed well-nourished female in no acute distress. Her heart has a regular rhythm and rate without murmur. Her lungs are clear to auscultation. Her abdomen is nondistended, gravid, has normal active bowel sounds, soft, nontender, without any palpable masses aside from uterine fundus. Her extremities are without any cyanosis, clubbing, or edema and are nontender to palpation bilaterally. Digital cervical examination is deferred. Results Result Diagrams: 11/30/18 07:54 Abnormal Lab Results - Last 24 Hours (Table) 11/30/18 Range/Units 07:54 Hgb 11.1 L (11.4-16.0) gm/dL RDW 16.6 H (11.5-15.5) % Assessment and Plan (1) Keloid scar Current Visit: Yes Status: Acute Code(s): L91.0 - HYPERTROPHIC SCAR SNOMED Code(s): 97341995 (2) Term Current Visit: Yes Status: Acute Code(s): Z34.90 - ENCNTR FOR SUPRVSN OF NORMAL , UNSP, UNSP TRIMESTER SNOMED Code(s): 07101604 (3) Previous section Current Visit: Yes Status: Acute Code(s): Z98.891 - HISTORY OF UTERINE SCAR FROM PREVIOUS SURGERY SNOMED Code(s): 328641879 Plan: The patient is admitted for repeat low transverse section as well as excision of her keloid scar. The risks and, occasions the procedure have been thoroughly discussed. She has understood all this and agreed to proceed.
--- NOTE | 2018-11-30 09:30 | P.OP ---
Date of Procedure: 11/30/18 Preoperative Diagnosis: #1. 39-2/7 weeks, previous section, declining vaginal trial of labor #2. Keloid previous section scar Postoperative Diagnosis: Same Procedure(s) Performed: #1. Repeat low transverse section #2. Excision and revision of keloid scar Anesthesia: spinal Surgeon: Danny Blevins Securities Clerk #1: Heather Ramos Estimated Blood Loss (ml): 500 IV fluids (ml): 1,100 Urine output (ml): 100 Pathology: none sent Condition: stable Disposition: floor Operative Findings: The patient was taken to the operating room where she was delivered of a viable 8 lbs. 13 oz. baby boy with Apgars of 9 at 1 minute and 9 at 5 minutes delivered in the occiput anterior position. There was a nuchal cord 1 reduced upon delivery of the head. The placenta was delivered manually, intact, and grossly normal with a grossly normal three-vessel cord. The uterus, tubes, and ovaries were entirely normal to inspection. There was a significant amount of scarring at the level of the skin to the fascia with less significant scarring beneath that level. The bladder was scarred relatively high on the lower uterine segment. The keloid scar was excised upon opening the incision. 200 mg of Kenalog in 5 mL total solution was injected into the dermal and subcutaneous layers of the incision, equally divided between the upper and lower half. Description of Procedure: The patient was prepped and draped in usual fashion after spinal anesthesia was administered by the anesthesiologist. An incision was made on either side of the very large keloid scar allowing it to be elevated and removed and discarded. The incision was then extended down through the fascia and into the abdomen with minimal difficulty other was a moderate amount of scarring in the subcutaneous layer. The bladder was noted to be scarred somewhat high on the lower uterine segment and was therefore elevated and incised and reflected distally. A 2 cm incision was made in the transverse plane of the lower uterine segment to enter the uterus at which time clear fluid was noted. The incision was extended in both directions using the bandage scissors. The head was delivered up and through the wound where the nose and mouth were thoroughly suctioned. Loose nuchal cord was noted and reduced at that time. The remainder of the infan was delivered onto the field where the nose and mouth were thoroughly suctioned again. The cord was doubly clamped, cut, and the passed resuscitative measures with weight and Apgars as noted above. a segment of cord was doubly clamped, cut, and set aside should cord gases become necessary. The placenta was delivered manually and intact as noted above. The uterus was exteriorized and the interior cavity of the uterus swept of any remaining placental or membranous fragments. The margins of the incision were grasped with Taylor clamps and the incision closed in 2 layers. The first layer was a running locking stitch of 0 chromic catgut followed by a running imbricating stitch of 0 chromic catgut, each from margin to margin. Any small points of bleeding were made hemostatic with the Bovie. The posterior c ul-de-sac was suctioned with a guard and the uterine and ovarian findings were normal as noted above. The uterus was replaced within the abdominal cavity and the gutters swept of any remaining blood, fluid, or clot. The incision was reexamined and 2 points of bleeding were noted which were made hemostatic with [id number] stitches of 0 chromic catgut. Again any small points of bleeding were made hemostatic with the Bovie. Once hemostasis was achieved, the parietal peritoneum was loosely reapproximated in the layer of muscles examined and made hemostatic with the Bovie. The fascia was closed with 2 running stitches of 0 Vicryl proceeding from the lateral margins to the midpoint. The subcutaneous tissues were then irrigated and made hemostatic with the Bovie. There was very little depth and they were not closed primarily. A spinal needle was then utilized to inject 2.5 mL of Kenalog, a total of 100 mg into the margin of the incision both upper and lower from edge to edge. This was done in an attempt to decrease the formation of keloid scar. The skin was then reapproximated with regular surgical santosh. All sponge, instrument, and needle counts were correct. Estimated blood loss for the case was approximate 500 mL. There were no complications. The patient tolerated the procedure well and proceeded to the recovery room in stable condition. Both mother and infant are resting comfortably in recovery.
[2018-11-30] MEDS: KETOROLAC 30 MG/ML 1 ML VIAL IVP PRN ×2 (14:58→20:44)
[2018-11-30] MEDS: SENNOSIDES-DOCUSATE SODIUM 1 EACH TAB PO SCH (19:55)
[2018-11-30] MEDS: LACTATED RINGERS 1,000 ML IV SCH (21:46)
[2018-12-01 06:43] LABS: Anisocytosis Slight; Basophils % (A) 0 %; Eosinophils # (A) 0.1 k/uL (0-0.7); Eosinophils % (A) 1 %; HCT 31.7 % (34.0-46.0); HGB 10.1 gm/dL (11.4-16.0); Hypochromasia Slight; Lymphocytes # (A) 1.1 k/uL (1.0-4.8); Lymphocytes % (A) 11 %; MCH 25.8 pg (25.0-35.0); MCV 80.6 fL (80.0-100.0); Mean Platelet Volume 8.9; Monocytes # (A) 0.5 k/uL (0-1.0); Monocytes % (A) 5 %; Neutrophils # (A) 8.5 k/uL (1.3-7.7); Neutrophils % (A) 82 %; Platelet Count 210 k/uL (150-450); RBC 3.93 m/uL (3.80-5.40); RDW 17.1 % (11.5-15.5); WBC 10.3 k/uL (3.8-10.6)
[2018-12-01] MEDS: SENNOSIDES-DOCUSATE SODIUM 1 EACH TAB PO SCH ×2 (10:16→20:08)
[2018-12-01] MEDS: IBUPROFEN 600 MG TAB PO PRN ×2 (10:17→20:08)
--- NOTE | 2018-12-01 10:24 | P.PNOBGPC ---
Subjective - Subjective Principal diagnosis: Repeat section Patient reports: Reports appetite normal, Reports voiding normally, Reports pain well controlled, Reports ambulating normally [facility]: doing well Objective - Vital Signs Latest vital signs: Vital Signs Temp Pulse Resp BP Pulse Ox 12/01/18 04:00 98.4 F 86 16 117/78 98 12/01/18 00:00 97.9 F 80 16 123/79 98 11/30/18 20:00 98.0 F 86 16 131/74 11/30/18 16:00 98.3 F 68 16 127/73 11/30/18 11:10 89 17 120/75 99 11/30/18 10:41 98.3 F 84 17 134/85 Intake and Output 11/30/18 12/01/18 12/01/18 22:59 06:59 14:59 Intake Total 650 Output Total 450 900 Balance 200 -900 Intake: Oral 650 Output: Urine 450 900 Uretheral ([place]ry) 450 - Exam Extremities: Present: normal. Absent: tenderness, edema Abdomen: Present: normal appearance, soft, tenderness Incision: Present: intact ([place]vein) Uterus: Present: normal, firm - Labs Labs: Abnormal Lab Results - Last 24 Hours (Table) 12/01/18 Range/Units 06:31 Hgb 10.1 L (11.4-16.0) gm/dL Hct 31.7 L (34.0-46.0) % RDW 17.1 H (11.5-15.5) % Neutrophils # 8.5 H (1.3-7.7) k/uL Assessment and Plan (1) Keloid scar Current Visit: Yes Status: Acute Code(s): L91.0 - HYPERTROPHIC SCAR SNOMED Code(s): 20507903 (2) Previous section Current Visit: Yes Status: Acute Code(s): Z98.891 - HISTORY OF UTERINE SCAR FROM PREVIOUS SURGERY SNOMED Code(s): 045624381 (3) S/P section Narrative/Plan: Postop day 1 status post repeat low transverse section. She is recovering well this morning. There is some bleeding on her dressing when it was removed however no active bleeding from the incision itself. This is likely secondary to the large keloid scar that was removed. Current Visit: Yes Status: Acute Code(s): Z98.891 - HISTORY OF UTERINE SCAR FROM PREVIOUS SURGERY SNOMED Code(s): 119143909 (4) Term Current Visit: Yes Status: Acute Code(s): Z34.90 - ENCNTR FOR SUPRVSN OF NORMAL , UNSP, UNSP TRIMESTER SNOMED Code(s): 17913155
[2018-12-02] MEDS: SENNOSIDES-DOCUSATE SODIUM 1 EACH TAB PO SCH (08:00)
[2018-12-02 10:14] VITALS: BP 111/68; PULSE 99; RESP 18; TEMP 98.3
--- NOTE | 2018-12-02 10:49 | P.DS ---
Providers Date of admission: 11/30/18 06:13 Expected date of discharge: 12/02/18 Attending physician: Danny Blevins Primary care physician: Stated None - Discharge Diagnosis(es) (1) Keloid scar Current Visit: Yes Status: Acute (2) Previous section Current Visit: Yes Status: Acute (3) S/P section Current Visit: Yes Status: Acute (4) Term Current Visit: Yes Status: Acute Hospital Course: This is a 38-year-old 2 now para 2 woman who was admitted for scheduled repeat low transverse section and revision of keloid scar. She was admitted on 11/30/2018 and went to the operating room where she had an unremarkable repeat section. She was delivered of a liveborn male weighing 8 lbs. 13 oz. with Apgars of 9 at 1 minute and 9 at 5 minutes. Please see the operative report for details. Her postoperative course was unremarkable. By postoperative day #1 she was ambulating and voiding without difficulty. Her vital signs were stable. Her postoperative labs were within normal limits and her incision was intact. By postoperative day #2 she continued to do well. Her incision appeared well healing however the santosh were not ready to be removed. Her lochia was minimal and she was tolerating oral pain medications for pain control. She was therefore discharged home with routine instructions for postoperative care and follow-up. Procedures: Repeat low transverse section Patient Condition at Discharge: Good Plan - Discharge Summary New Discharge Prescriptions: No Action Acetaminophen/Diphenhydramine [Tylenol PM 500-25mg] 1 tab PO HS Pnv No.95/Ferrous Fum/Folic AC [ Multivitamin Tablet] 1 each PO DAILY Discharge Medication List Acetaminophen/Diphenhydramine [Tylenol PM 500-25mg] 1 tab PO HS 10/01/18 [History] Pnv No.95/Ferrous Fum/Folic AC [ Multivitamin Tablet] 1 each PO DAILY 10/01/18 [History] Follow up Appointment(s)/Referral(s): Danny Blevins MD [STAFF PHYSICIAN] - 12/18/18 (Staple removal) Activity/Diet/Wound Care/Special Instructions: Follow-up in 2 weeks after surgery in the office. Call the office with any concerning signs or symptoms including fever greater than 101, severe abdominal pain, heavy vaginal bleeding, signs of wound infection, increased swelling or redness of the lower extremities, signs of depression. No driving for 2 weeks after surgery. No heavy lifting or vigorous activity until reevaluated in the office. No intercourse for 6 weeks after delivery. May use [id number] ibuprofen and or Tylenol Extra Strength as needed for pain. Discharge Disposition: HOME SELF-CARE
--- NOTE | 2018-12-03 06:42 | P.PN ---
Progress Note - Text Progress Note Date: 12/01/18 post duramorph rounds patient denies any complaints of headaches or weakness site is clean dry and intact Anesthesia sign off
== END 2018-12-02 12:35 | disposition home or self-care (01) | DRG 788 ==
LOC: 4FBP 06:13
PROVIDERS: ADMIT Obstetrics & Gynecology; ATTEND Obstetrics & Gynecology
PROC: 0HB7XZZ Excision of Abdomen Skin, External Approach (ICD-10-PCS; 2018-11-30)
PROC: 10D00Z1 Extraction of Products of Conception, Low, Open Approach (ICD-10-PCS; principal; 2018-11-30 08:00)
DX: O34.211 Maternal care for low transverse scar from previous cesarean delivery (principal); O24.429 Gestational diabetes mellitus in childbirth, unspecified control; O69.81X0 Labor and delivery complicated by cord around neck, without compression, not applicable or unspecified; O99.72 Diseases of the skin and subcutaneous tissue complicating childbirth; L91.0 Hypertrophic scar; O99.344 Other mental disorders complicating childbirth; F90.9 Attention-deficit hyperactivity disorder, unspecified type; F41.9 Anxiety disorder, unspecified; Z37.0 Single live birth; Z3A.39 39 weeks gestation of pregnancy; Z87.59 Personal history of other complications of pregnancy, childbirth and the puerperium; Z77.22 Contact with and (suspected) exposure to environmental tobacco smoke (acute) (chronic); Z90.79 Acquired absence of other genital organ(s); Z91.041 Radiographic dye allergy status; Z91.040 Latex allergy status; Z91.010 Allergy to peanuts
CPT/HCPCS: 85025; 86850; 86900; 86901

== ENCOUNTER → 2023-05-02 | Outpatient (CLI) | payer OTHER ==
[2023-05-02 15:57] LABS: Basophils # (A) 0.01 X 10*3/uL (0.00-0.10); Basophils % (A) 0.2 %; Eosinophils # (A) 0.02 X 10*3/uL (0.04-0.35); Eosinophils % (A) 0.4 %; HCT 38.8 % (37.2-46.3); HGB 12.5 d/dL (12.0-15.0); Lymphocytes # (A) 1.66 X 10*3/uL (0.90-5.00); Lymphocytes % (A) 30.5 %; MCH 27.9 pg (27.0-32.0); MCHC 32.2 d/dL (32.0-37.0); MCV 86.6 FL (80.0-97.0); Mean Platelet Volume 11.8 FL (9.5-12.2); Monocytes # (A) 0.38 X 10*3/uL (0.20-1.00); NRBC Per 100 WBC 0 X 10*3/uL (0.00-0.01); Neutrophils # (A) 3.36 X 10*3/uL (1.80-7.70); Neutrophils % (A) 61.5 %; Platelet Count 193 X 10*3/uL (140-440); RBC 4.48 X 10*6/uL (4.10-5.20); RDW 13.3 % (11.5-14.5); WBC 5.45 X 10*3/uL (4.50-10.00)
[2023-05-02 16:20] LABS: % Iron Saturation 22.73 (12.00-45.00); ALT 11 U/L (8-44); AST 14 U/L (13-35); Albumin 4.6 d/dL (3.8-4.9); Albumin/Globulin Ratio 1.77 Ratio (1.60-3.17); Alkaline Phosphatase 53 U/L (41-126); BUN/Creat Ratio 24.83 Ratio (12.00-20.00); Blood Urea Nitrogen 14.9 mg/dL (9.0-27.0); Calcium 9.7 mg/dL (8.7-10.3); Carbon Dioxide 22.3 mmol/L (21.6-31.8); Chloride 104 mmol/L (96-109); Chol/HDL Ratio 3.15 Ratio; Globulin 2.6 d/dL (1.6-3.3); Glucose 88 mg/dL (70-110); Iron 70 UG/DL (50-170); LDL Cholesterol,Calculated 116.7 mg/dL (0.0-131.0); Potassium 4.5 mmol/L (3.5-5.5); Sodium 137 mmol/L (135-145); Total Bilirubin 0.5 mg/dL (0.3-1.2); Total Iron Binding Capacity 308 UG/DL (228-460); Total Protein 7.2 d/dL (6.2-8.2); VLDL Calculation 15.02 mg/dL (5.00-40.00)
[2023-05-02 16:21] LABS: T4, Free (Free Thyroxine) 1.26 ng/dL (0.80-1.80)
[2023-05-02 16:30] LABS: Follicle Stimulating Hormone 2.2 mIU/mL; Luteinizing Hormone 8.4 mIU/mL
== END | disposition home or self-care (01) ==
LOC: LABWHC1 09:48
PROVIDERS: ATTEND Family Medicine
DX: Z00.01 Encounter for general adult medical examination with abnormal findings (principal); E55.9 Vitamin D deficiency, unspecified; N92.6 Irregular menstruation, unspecified; D64.9 Anemia, unspecified
CPT/HCPCS: 36415; 80053; 80061; 82306; 82607; 82672; 82728; 82746; 83001; 83002; 83540; 83550; 84402; 84403; 84439; 84443; 85025

== ENCOUNTER → 2023-05-30 | Outpatient (CLI) | payer OTHER ==
--- NOTE | 2023-05-30 10:20 | US ---
EXAMINATION TYPE: US pelvic complete DATE OF EXAM: 05/30/2023 COMPARISON: NONE CLINICAL INDICATION: Female, 42 years old with history of N92.6 IRREGULAR MENSTRUATION,; Irregular me nses. Hx ectopic with left fallopian tube removed TECHNIQUE: Transabdominal (TA). Transabdominal sonographic images of the pelvis were acquired. Date of LMP: 05/26/2023, EXAM MEASUREMENTS: Uterus: 7.3 x 5.0 x 4.1 cm Endometrial Stripe: 0.6 cm Right Ovary: 3.3 x 1.7 x 1.9 cm Left Ovary: 2.4 x 1.6 x 1.6 cm 1. Uterus: Retroverted Appears heterogenous. 2. Endometrium: wnl 3. Right Ovary: Follicles seen 4. Left Ovary: Follicles seen 5. Bilateral Adnexa: wnl 6. Posterior cul-de-sac: no free fluid IMPRESSION: 1. Unremarkable pelvic ultrasound
--- NOTE | 2023-05-31 16:20 | MM ---
Reason for Exam: Screening (asymptomatic). Baseline mammogram. Patient History: Menarche at age 13. First Full-Term at age 34. Late child-bearing (after 30). Risk Values: Yeny 5 year model risk: 0.8%. NCI Lifetime model risk: 14.8%. Prior Study Comparison: Patient's first Mammogram. Tissue Density: The breast tissue is extremely dense which could obscure a lesion on mammography. Findings: Analyzed By CAD. Pattern appears symmetrical. No suspicious groups of microcalcifications, spiculated or lobular masses, architectural distortion or other secondary signs of malignancy are mammographically apparent. Overall Assessment: Benign, BI-RAD 2 Management: Screening Mammogram of both breasts in 1 year. A negative mammogram report should not preclude additional follow up of suspicious palpable abnormalities. Patient should continue monthly self breast exam. A clinical breast exam by your physician is recommended on an annual basis and results should be correlated with mammographic findings. Electronically signed and approved by: Adolph Villegas D.O. Radiologis
== END | disposition home or self-care (01) ==
LOC: RADUSWWP 09:13
PROVIDERS: ATTEND Family Medicine
DX: Z12.31 Encounter for screening mammogram for malignant neoplasm of breast (principal); N92.6 Irregular menstruation, unspecified; Z90.79 Acquired absence of other genital organ(s)
CPT/HCPCS: 76856; 77067

== ENCOUNTER → 2023-12-13 | Outpatient (CLI) | payer OTHER ==
--- NOTE | 2023-12-13 17:31 | XR ---
EXAMINATION TYPE: XR foot complete RT DATE OF EXAM: 12/13/2023 COMPARISON: None HISTORY: First metatarsal joint space pain TECHNIQUE: 3 view right foot FINDINGS: Mild hallux valgus deformity is present. Joint spaces appear preserved. No suspicious joint erosions identified. No acute fracture or dislocation evident. Soft tissues appear normal. Follow up exams can be performed as clinically indicated. IMPRESSION: 1. No acute osseous abnormality to account for first metatarsal joint space pain
== END | disposition home or self-care (01) ==
LOC: RADXRMAIN 12:25
PROVIDERS: ATTEND Family Medicine
DX: M79.671 Pain in right foot (principal); M20.11 Hallux valgus (acquired), right foot